=== PATIENT | female | born 1935 | race Caucasian/White ===

== ENCOUNTER 2016-08-30 11:38 | Outpatient (CLI) | payer MEDICARE, OTHER ==
[~2016-08-30] VITALS: Ht 160 cm; Wt 61.4 kg
--- NOTE | ~2016-08-30 | HEMODYNAMI ---
PATIENT:SIMON THOMPSON MEDICAL RECORD: [id number] : 34 LOCATION:[facility]SEK[facility] ADMISSION DATE: 08/30/16 Generatedon:08/30/201616:57 Patient name: SIMON THOMPSON Patient #: [id number] SS N: : 1935 Date of study: 08/30/2016 Page: Of Hemodynamic Procedure Report Patient Data Patient Demographics Procedure consent was obtained First Name: SIMON Gender: Female Last Name: JAY : 1935 [facility] Initial: MCKAYLA Age: 80 year(s) Patient #: [id number] Race: Unknown Additional ID: [id number] Contact details [address]: [address] [place] [address] State: [place] City: [place] Zip code: [address] Past Medical History Allergies: No known allergies Admission Admission Data Admission Date: 08/30/2016 Admission Time: 11:38 Height (in.): 65 BSA: 1.69 (m2) Height (cm.): 165.1 BMI: 23.13 (kg/m2) Weight (lbs.): 139 Weight (kg.): 63.05 Lab Results Lab Result Date: 08/30/2016 Lab Result Time: 0:00 CBC Name Units Result Min Max Hemoglobin g/dl 15 --(-*--)-- 13.5 17.5 Procedure Procedure Types Cath Procedure Diagnostic Procedure PPM/ICD PPM Dual Implant Miscellaneous Procedures Moderate Sedation up to 15 minutes Procedure Description Procedure Date Procedure Date: 08/30/2016 Procedure Start Time: 15:53 Procedure End Time: 16:56 Procedure Staff Name Function Deep Mantilla MD Performing Physician Reinaldo Henson MD Assisting physician Manolo Martínez RT Monitor Victor Manuel Jeffries RT Construction Analyst Ana Paula Gibson RN Nurse Kim Hickman RT Scrub Procedure Data Cath Procedure Fluoroscopy Diagnostic fluoroscopy Total fluoroscopy Time: time: 16.8 min 16.8 min Diagnostic fluoroscopy Total fluoroscopy dose: dose: 266.9 mGy 266.9 mGy Procedure Complications No complications Procedure Medications Medication Administration Route Dosage Ancef (1Gm/50ml NS) I.V.P.B 1 g Ancef Irrigation Topical 1 g (1gm/500ml NS) Lidocaine 1% with added to field 20 ml Epi Bupivacaine 0.5% S.Q. 10 ml 0.9% NaCl I.V. 25 ml/hr Versed I.V. 1 mg Fentanyl I.V. 50 mcg Versed I.V. 1 mg Fentanyl I.V. 50 mcg Fentanyl I.V. 25 mcg Oxygen NC 2 l/min Fentanyl I.V. 25 mcg Fentanyl I.V. 50 mcg Hemodynamics Rest BSA: 1.69 (m2) HGB: 15 (g/dl) O2 Consumption: Estimated: 159.91 (ml/min) O2 Cons umption indexed: Estimated:94.62 (ml/min/m) Heart Rate: 83 (bpm) Snapshots Pre Cath Intra NCS Post Cath Vital Signs Time Heart Resp SPO2 NIBP (mmHg) Rhythm Pain Sedation Rate (ipm) (%) Status Level (bpm) 15:41:28 81 15 94 157/75(112) NSR 0 (11) 10(A) , No pain 15:45:50 80 16 95 129/67(103) NSR 0 (11) 10(A) , No pain 15:50:04 78 15 98 133/73(108) NSR 0 (11) 10(A) , No pain 15:54:20 67 18 97 128/73(104) NSR 0 (11) 10(A) , No pain 15:58:34 83 16 95 132/65(103) NSR 0 (11) 10(A) , No pain 16:03:45 76 17 95 132/61(93) NSR 0 (11) 10(A) , No pain 16:07:57 71 22 95 113/57(81) NSR 0 (11) 10(A) , No pain 16:12:09 83 16 95 122/62(87) NSR 0 (11) 10(A) , No pain 16:16:25 70 17 95 125/57(100) NSR 0 (11) 9(A) , No pain 16:20:43 71 19 94 127/58(93) NSR 0 (11) 10(A) , No pain 16:24:59 67 17 94 141/63(100) NSR 0 (11) 10(A) , No pain 16:29:11 68 16 94 123/71(104) NSR 0 (11) 10(A) , No pain 16:33:25 74 18 94 141/68(92) NSR 0 (11) 10(A) , No pain 16:37:45 65 15 94 126/66(122) NSR 0 (11) 10(A) , No pain 16:41:57 89 16 95 139/73(113) NSR 0 (11) 10(A) , No pain 16:46:17 63 17 97 132/63(87) NSR 0 (11) 10(A) , No pain 16:50:27 63 18 97 137/70(117) NSR 0 (11) 10(A) , No pain 16:54:41 90 7 97 134/65(109) NSR 0 (11) 10(A) , No pain Medications Time Medication Route Dose Verified Delivered Reason Notes Effectiv eness by by 15:41:25 Ancef I.V.P.B 1 g Deep Goss used for (1Gm/50ml Annalee Gibson form grader operator NS) 15:41:35 Ancef Topical 1 g Deep Reinaldo used for Irrigation Bascom Breving procedure (1gm/500ml MD WOODS NS) 15:53:26 Lidocaine added 20 ml Deep Najera for local 1% with Epi to Bascom Breving anesthetic field MD WOODS 15:53:39 Bupivacaine S.Q. 10 ml Deep Najera for local 0.5% Annalee Breving anesthetic MD WOODS 15:53:49 0.9% NaCl I.V. 25 Deep Goss Per ml/hr BascomTimbo Gibson RN physician 15:53:56 Versed I.V. 1 mg Deep Muhammadie for Bascom Gibson RN sedation 15:54:03 Fentanyl I.V. 50 Deep Sabinaie for mcg AnnaleeTimbo Gibson RN sedation 15:59:16 Versed I.V. 1 mg Deep Muhammadie for Bascom Gibson RN sedation 15:59:21 Fentanyl I.V. 50 Deep Muhammadie for mcg BascomTimbo Gibson RN sedation 16:02:56 Oxygen NC 2 Deep Sabinaie used for l/min AnnaleeTimbo Gibson form grader operator 16:17:20 Fentanyl I.V. 25 Deep Goss for [facility] St. Timbo Gibson RN sedation 16:21:14 Fentanyl I.V. 25 Deep Goss for [facility] St. Timbo Gibson RN sedation 16:33:54 Fentanyl I.V. 50 Deep Goss for [facility] St. Timbo Gibson RN sedation Procedure Log Time Note 15:11:47 Patient Height : 165.1 cm 15:11:53 Patient Weight : 63.05 kg 15:12:54 Diagnostic Cath status Elective 15:12:58 Manolo Martínez RT(R) sent for patient. Start room use. 15:40:14 Vital chart was started 15:41:25 Ancef (1Gm/50ml NS) 1 g I.V.P.B was administered by Ana Paula Gibson RN; used for procedure; 15:41:35 Ancef Irrigation (1gm/500ml NS) 1 g Topical was administered by Reinaldo Henson MD; used for procedure; 15:44:45 Time tracking: Regular hours 15:46:13 Plan of Care:Hemodynamics will remain stable., Cardiac rhythm will remain stable., Comfort level will be maintained., Respiratory function will remain adequate., Patient/ family verbilizes understanding of procedure., Procedure tolerated without complication., Recovers from procedure without complications.. 15:46:29 Patient received from Pre/Post Procedure Room to [facility] 3 Alert and oriented. Tansferred to table in Supine position. 15:46:30 Warm blankets applied, and allan hugger turned on for patient comfort. 15:46:30 Correct patient and procedure confirmed by team. 15:46:32 Signed procedure consent form obtained from patient. 15:46:32 ECG and BP/O2 sat monitors applied to patient. 15:46:33 Baseline sample Acquired. 15:46:35 Rhythm: sinus rhythm 15:46:36 Full Disclosure recording started 15:46:45 H&P Date Dictated: 08/24/2016 Within 30 days and on chart., H&P Addendum completed by physician on day of procedure. (MUST COMPLETE FOR ALL OUTPATIENTS). 15:46:47 Pre-procedure instructions explained to patient. 15:46:47 Pre-op teaching completed and patient verbalized understanding. 15:46:48 Family in waiting room. 15:46:49 Patient NPO since Midnight. 15:46:56 Patient allergic to No known allergies 15:46:58 Is the patient allergic to Iodine/contrast media? No. 15:47:00 Is patient on blood thinner?No 15:47:06 Patient diabetic? No. 15:47:08 ----Pre-sedation anethsthesia assessment.---- 15:47:10 Previous problem with sedation/anesthesia? No ? 15:47:11 Snore? Yes 15:47:12 Sleep apnea? No 15:47:14 Deviated septum? No 15:47:15 Opens mouth fully? Yes 15:47:16 Sticks out tongue? Yes 15:47:18 Airway obstruction? No ? 15:47:25 Dentures? No ? 15:47:29 Patient pain scale 0/10 ?. 15:47:34 IV patent on arrival in left hand with 0.9% NaCl at 10ml/hr. 15:51:56 Lab Result : Hemoglobin 15 g/dl 15:52:52 Lab results completed and on chart. 15:52:58 Left chest area was prepped with chlora-prep and draped in sterile fashion 15:52:59 Alarms reviewed by R. N. 15:52:59 Sharps counted by scrub and verified by R.N. 15:53:08 --------ALL STOP TIME OUT------ 15:53:09 Final Timeout: patient, procedure, and site verified with staff and physician. All members of the team are in agreement. 15:53:12 Left chest site verified by team. 15:53:16 Physical assessment completed. ASA score P 2 - A patient with mild systemic disease as per Deep Mantilla MD. 15:53:19 Sedation plan: IV Moderate Sedation Versed, Fentanyl 15:53:25 Procedure started. 15:53:26 Lidocaine 1% with Epi 20 ml added to field was administered by Reinaldo Henson MD; for local anesthetic; 15:53:37 [employer]tronic security systems sales representative WILLEM HARMANOE present for procedure. 15:53:39 Bupivacaine 0.5% 10 ml S.Q. was administered by Reinaldo Henson MD; for local anesthetic; 15:53:49 0.9% NaCl 25 ml/hr I.V. was administered by Ana Paula Gibson RN; Per physician; 15:53:56 Versed 1 mg I.V. was administered by Ana Paula Gibson RN; for sedation; 15:54:03 Fentanyl 50 mcg I.V. was administered by Ana Paula Gibson RN; for sedation; 15:54:06 Pre sharps counted by scrub and verified by RN: Sutures: 14 Sponges: 5 Stick needles: 4 Skin needles: 0 Blade: 1 Cautery: 1 15:54:09 Grounding pad site Left thigh. 15:54:12 Grounding pad site free from injury. 15:54:18 Lidocaine 1% w/epi and Bupivacaine 0.5% to left subclavicular area by Reinaldo Henson MD. 15:54:21 Incision made to left subclavicular area. 15:54:47 Medtronic 4574-45 PPM Lead opened to sterile field. 15:54:48 Medtronic 4074-52 PPM Lead opened to sterile field. 15:54:48 Medtronic Adapta PPM Dual Generator opened to sterile field. 15:56:30 Generator pocket made/opened. 15:59:16 Versed 1 mg I.V. was administered by Ana Paula Gibson RN; for sedation; 15:59:21 Fentanyl 50 mcg I.V. was administered by Ana Paula Gibson RN; for sedation; 16:00:30 Left subclavian vein accessed with 9Fr Safe Sheath. 16:00:35 Ventricular lead inserted and advanced. 16:00:37 Ventricular lead positioned. 16:00:41 Ventricular lead tested. 16:01:00 Atrial lead inserted and advanced. 16:01:02 Atrial lead positioned. 16:01:06 Atrial lead tested. 16:02:56 Oxygen 2 l/min NC was administered by Ana Paula Gibson RN; used for procedure; 16:17:20 Fentanyl 25 mcg I.V. was administered by Ana Paula Gibson RN; for sedation; 16:21:14 Fentanyl 25 mcg I.V. was administered by Ana Paula Gibson RN; for sedation; 16:33:54 Fentanyl 50 mcg I.V. was administered by Ana Paula Gibson RN; for sedation; 16:38:44 Peel-a-way sheath was split and removed. 16:39:16 Ventricular lead attachment was completed with 2-0 ticron. 16:39:19 Atrial lead attachment was completed with 2-0 ticron. 16:39:23 Generator was sutured in place with 2-0 ticron. 16:39:40 Device pocket was irrigated with Ancef. 16:41:03 Parameters-- Generator: Mode: DUEL. Lower Rate: 60bpm. Upper Rate: 130bpm. 16:41:40 Parameters--Ventricular P/R Wave: 4.5mV. Current: 25mA; Threshold: 1.3V; Impedence: 1465OHMS. 16:42:05 Parameters--Atrial P/R Wave: 3.8mV. Current: 0.1mA; Threshold: 0.4V; Impedence: 810OHMS. 16:46:15 Subcutaneous closure was completed with 3-0 vicryl. 16:46:22 Skin closure was completed with 3-0 vicryl plus. 16:53:31 Lt Chest incision was dressed with Mepilex dressing. 16:53:48 Procedure ended.(Physican Out) 16:54:29 3.0 Vicryl Multipack [id number] opened to sterile field. 16:54:30 3.0 Vicryl Single Pack [id number] opened to sterile field. 16:54:30 2.0 Ticron Multipack opened to sterile field. 16:54:37 Fluoroscopy time 16.80 minutes. 16:54:43 Flurop Dose total: 266.9 16:54:43 Fluoroscopy dose: 266.9 mGy 16:54:44 Sharps counted by scrub and verified by R.N. 16:54:45 Insertion/operative site no bleeding no hematoma. 16:54:49 Post-op/insertion site Left Chest area dressed using a Mepilex dressing. 16:54:57 Post Chest area:stable 16:55:06 Post Procedure Pulses reassessed and unchanged 16:55:10 Post procedure rhythm: sinus rhythm 16:55:11 Post procedure instruction explained to patient.Patient verbalizes understanding. 16:55:25 Use device set Pacemaker Set 16:55:27 Mepilex Dressing opened to sterile field. 16:55:30 Immobilizer Sling Medium opened to sterile field. 16:55:43 Procedure and supply charges have been captured, reviewed, submitted and are correct. 16:55:58 Procedure Complication : No complications 16:56:01 Vital chart was stopped 16:56:01 See physician's report for complete and final results. 16:56:03 Report given to PCU. 16:56:06 Patient transfered to PCU with Bed. 16:56:08 Procedure ended. 16:56:08 Full Disclosure recording stopped 16:56:12 End room use (Document Last) Device Usage Item Name Manufacture Quantity Catalog Hospital Part Current Minimal Lot# / Number Charge Number Stock Stock Serial# Code Medtronic Medtronic 1 4574-45 220927 110035 5 4574-45 PPM Lead Medtronic Medtronic 1 4074-52 308449 499085 5 4074-52 PPM Lead Medtronic Medtronic 1 [id number] [id number] 5 [id number] Adapta PPM 11-19-2017 Dual Generator 3.0 Vicryl Ethicon 1 [id number] 111248 031491 [id number] 5 Multipack [id number] 3.0 Vicryl Ethicon 1 [id number] 473626 110301 172892 5 Single Pack [id number] 2.0 Ticron Ethicon 1 [id number] 385933 50850 290705 5 Multipack Mepilex Cardinal 1 920844 052526 950635 844776 5 [facility] Immobilizer Cardinal 1 [id number] 435875 689836 633742 5 [facility] Medium Signature Audit [place] Stage Time Signature Unsigned Intra-Procedure 08/30/2016 Manolo Martínez 4:57:31 PM RT(R) Signatures Monitor : Manolo Martínez RT Signature : Date : Time : [address] [place] [address]
--- NOTE | ~2016-08-30 | OP ---
PATIENT NAME: SIMON THOMPSON MEDICAL RECORD: [id number] :34 LOCATION:D.M2 D.2123 ADMISSION DATE: SURGEON: KELLIE ROWELL MD OPERATION DATE: 08/30/16 DATE OF OPERATION: 08/30/2016 PREOPERATIVE DIAGNOSIS: Sick sinus syndrome with pauses. POSTOPERATIVE DIAGNOSIS: Sick sinus syndrome with pauses. PROCEDURES: Creation of left infraclavicular pacemaker pocket. Vascular access into the central venous system. Closure of pacemaker pocket. INSPECTION ENGINEER: Dr. Deep Rose. SURGEON: Dr. Kellie Rowell. ANESTHESIA: Local with IV sedation. OPERATIVE COURSE: The patient was conveyed to the cardiac catheterization laboratory on 08/30/2016. IV sedation was induced by the nursing staff under my direction. The left chest was sterilely prepped and draped. Local anesthetic was used to infiltrate the skin and subcutaneous tissues inferior to the left clavicle. Transverse incision was accomplished. I bluntly dissected on top of the pectoralis fascia in a caudad direction. Through the pacemaker pocket, I accessed the left subclavian vein in an antegrade fashion. A 9-Latvian dilator sheath was advanced. The dilator was removed. Through the sheath, the ventricular lead was advanced. Dr. Mantilla positioned the lead. Appropriate thresholds were obtained. I sutured the lead down to the underlying pectoralis fascia with 2-0 TiCron times 2. Attention was then turned to placement of the atrial lead. Over the secondary wire, a 7-Latvian dilator sheath was advanced. The dilator and wire were removed. Through the sheath, an atrial lead was advanced. The Peel-Away 7-Latvian sheath was then removed. The atrial lead was positioned in the atrium. Appropriate thresholds were obtained. I then secured the knee down to the underlying pectoralis fascia with 2-0 TiCron times 2. A medial suture was placed around both of these to prevent back bleeding. I confirmed with pacemaker labor union business representative the ventricular lead serial number. It was placed in the ventricular dock of the pacemaker and tightened down with the wrench. I tried to dislodge the ventricular lead and was unable to do so. I then confirmed the serial number on the atrial lead. It was placed in the atrial dock of the pacemaker. I then tightened down with the wrench. I tried to dislodge the atrial lead and was unable to do so. I then positioned the pacemaker in the pacemaker pocket with care paid to place the leads posterior to the pacemaker. I sutured the pacemaker down to the underlying pectoralis fascia with a single 2-0 TiCron. I irrigated the pacemaker pocket with normal saline. The subdermis was approximated with OPERATIVE REPORT [id number] SIMON THOMPSON interrupted 3-0 Vicryls. The skin was approximated with a running intracuticular 4-0 Vicryl. A sterile dressing was applied. The patient was then conveyed back to the post-cardiac catheterization recovery area. TRANSINT:[id number] Voice Confirmation ID: [id number] DOCUMENT ID: [id number] KELLIE ROWELL MD CC: DEEP ROSE MD [id number] DICTATION DATE: 08/30/161657 SUPERVISOR CUSTOMER COMPLAINT SERVICE: 08/30/162201 [facility] [address] [place] [address]
[2016-08-30] MEDS ORDERED: COZAAR50 MG PO (12:16)
[2016-08-30] MEDS ORDERED: ZYRTEC10 MG PO (12:17)
[2016-08-30] MEDS ORDERED: PROTONIX20 MG PO (12:17)
[2016-08-30] MEDS ORDERED: NORVASC5 MG PO (12:17)
[2016-08-30] MEDS ORDERED: BAYER CHEWABLE81 MG PO (12:18)
[2016-08-30] MEDS ORDERED: ZOCOR10 MG PO (12:18)
[2016-08-30] MEDS ORDERED: VITAMIN D31000 UNIT PO (12:18)
[2016-08-30] MEDS ORDERED: MILK THISTLE140 MG PO (12:19)
[2016-08-30] MEDS ORDERED: CENTRUM SILVER1 EAC3 PO (12:19)
[2016-08-30] MEDS ORDERED: OMEGA-3100 MG PO (12:19)
[2016-08-30] MEDS ORDERED: OSTEO BI-FLEX1 EAC1 PO (12:20)
[2016-08-30] MEDS ORDERED: VITAMIN B-121000 MCG PO (12:20)
[2016-08-30] MEDS ORDERED: CITRACAL + D E1 EACH PO (12:20)
[2016-08-30] MEDS ORDERED: ALEVE220 MG PO (12:21)
[2016-08-30] MEDS ORDERED: CO Q-10200 MG PO (12:21)
[2016-08-30 12:22] VITALS: BP 161/76; BMI 23.9
[2016-08-30 12:27] LABS: HEMATOCRIT 44.1 % (36.0-48.0); MCH 31.7 pg (26.0-34.0); MCV 93.2 fL (80.0-100.0); MEAN PLATELET VOLUME 10.3 fL (7.4-10.4); RBC 4.73 10x6/uL (4.00-5.40); RDW 12.6 % (11.5-14.5); WBC 7.7 10x3/uL (4.8-10.8)
[2016-08-30 12:41] LABS: CALC OSMOLALITY 284 mosm/kg (275-300); CALCIUM 10.1 mg/dL (8.5-10.1); CARBON DIOXIDE 25.7 mmol/L (21.0-32.0); CHLORIDE - SERUM 104 mmol/L (98-107); CREATININE - SERUM 0.7 mg/dL (0.6-1.3); GLUCOSE 106 mg/dL (74-106); POTASSIUM - SERUM 4.5 mmol/L (3.5-5.1); SODIUM 141 mmol/L (136-145); UREA NITROGEN 24 mg/dL (7-18); eGFR NON AFRICAN AMERICAN 85 mL/min (90-120)
[2016-08-30 13:15] LABS: APTT 27.2 SECONDS (22.8-39.4); INR 1.06 (0.85-1.17); PROTIME 13.6 SECONDS (11.6-15.0)
--- NOTE | 2016-08-30 17:30 | NUR ---
RECIEVED FROM TEACHER EMOTIONALLY IMPAIRED. V/S STABLE TELEMERTY SHOWS SR WITH A RATE OF 67 O 2 AT 4 L/M PER NC. LEFT ARM SLING ON. DRSG TO LEFT UPPER CHEST DRY AND INTACT. SR UP WITH CALL LIGHT IN REACH. WILL MONITPR
--- NOTE | 2016-08-30 18:55 | NUR ---
LYING QUIETLY. FAMILY AT BEDSIDE. PACER SITE CLEAN AND DRY. WELL MOINTOR V/S STABLE
--- NOTE | 2016-08-30 20:00 | NUR ---
INITIAL ROUNDS, PT RESTING IN BED WITH LEFT ARM IN SLING. LEFT CHEST WALL WITH DRESSING OVER NEW PACEMAKER SITE. PT C/O GENERALIZED DISCOMFORT TO INCISION SITE. WILL FOLLOW UP WITH MD FOR PAIN MEDICATION.
[2016-08-30 20:01] VITALS: BP 142/72
--- NOTE | 2016-08-30 21:00 | NUR ---
PHONE CALL TO DR SANDOVAL AND NEW ORDERS RECIEVED FOR JONANCY FOR PAIN.
--- NOTE | 2016-08-30 21:30 | NUR ---
NORCO 10/325 ONE TABLET GIVEN FOR POST OP INCISIONAL PAIN. ASSISTED PT UP AN INTO BATHROOM TO VOID. BACK TO BED. LEFT ARM SLING IN PLACE. CALL LIGHT IN REACH. MONITOR AND CPOC.
[2016-08-31 00:17] VITALS: BP 133/64
[2016-08-31 02:47] VITALS: BP 133/64; Ht 160 cm; Wt 61.4 kg
--- NOTE | 2016-08-31 03:24 | NUR ---
RESTING IN BED. RESPS EVEN/NONLABORED. LEFT ARM IN SLING. DRESSING TO LEFT CHEST WALL C/D/I. MONITOR AND CPOC.
--- NOTE | 2016-08-31 04:26 | NUR ---
AWAKE, ASSISTED UP TO BATHROOM TO VOID. SOME PAIN/DISCOMFORT TO INCISIONAL AREA. MEDICATED WITH NORCO ONE TAB. MONITOR AND CPOC
[2016-08-31 04:46] VITALS: BP 155/70
[2016-08-31 08:19] VITALS: BP 171/69
--- NOTE | 2016-08-31 11:47 | NUR ---
ALERT AND ORIENTED X4. SITTING UP IN BED. ACTIVELY VOMITING. BP-186/90 RECHECK MANUALLY. BP-172/82. CALL TO NOTIFY OF STATUS CHANGE. SINUS ROBERT 54bpm ON TELEMETRY. CONTINUE PLAN OF CARE. BED LOCKED AND LOW. CALL LIGHT IN REACH.
[2016-08-31 12:05] VITALS: BP 172/82
--- NOTE | 2016-08-31 13:35 | NUR ---
ALERT AND ORIENTED X4. FAMILY AT BEDSIDE. SITTING UP IN CHAIR. SERGEI ORDERED X1 DOSE BEFORE DISCHARGE. DISCHARGE INSTRUCTIONS GIVEN VERBALLY AND WRITTEN. DISCHARGE PAPERS SIGNED ON CHART. DC LT HAND IV TIP INTACT. ENCOURAGE TO KEEP ARM IN SLING FOR TWO WEEKS. ESCORT TO RIDE VIA WHEELCHAIR. REMAINS FREE FROM INJURY. LT CHEST INCISION DRESSING CLEAN DRY INTACT.
--- NOTE | 2016-09-01 14:06 | OP ---
PATIENT NAME: SIMON THOMPSON MEDICAL RECORD: [id number] :34 LOCATION:D.CAT ADMISSION DATE: SURGEON: SANG ROSE MD PROCEDURE: Lead portion of permanent pacemaker placement. INDICATION: Sick sinus syndrome with pauses greater than 6 seconds. SURGEON: Reinaldo Henson F.A.C.S. PROCEDURE IN DETAIL: After the left subclavian was cannulated via modified Seldinger technique via Dr. Henson, first under fluoroscopic guidance I placed the right ventricular lead into the right ventricular apex without difficulty. After adequate R waves and thresholds were obtained , then under fluoroscopic guidance, I placed the right atrial lead in the right atrial appendage without difficulty. After adequate thresholds and P waves were obtained, I then attached the leads to the appropriate poles of the generator. The pocket was closed via Dr. Henson. IMPRESSION: Successful lead portion of permanent pacemaker placement. COMPLICATIONS: None. ESTIMATED BLOOD LOSS: Minimal. DISPOSITION: To the floor stable. SANG ROSE MD at 1406 CC: [id number] DICTATION DATE: 08/30/16 1500 PLUG MAKER: DM 08/31/16 0840 DEP CLI 08/31/16 [facility] [address] [place] [address]
== END 2016-08-31 14:07 | disposition home or self-care (01) ==
LOC: D.CATH 11:38 → D.M2 17:01 → D.CATH 08-31 14:07
PROVIDERS: Internal Medicine Interventional Cardiology
DX: I49.5 Sick sinus syndrome (principal); Z01.812 Encounter for preprocedural laboratory examination

== ENCOUNTER → 2016-09-12 14:54 | Outpatient (CLI) | payer MEDICARE, OTHER ==
[2016-08-31 02:47] VITALS: BMI 23.9
[~2016-09-12 14:54] MED LIST: ALEVE220 MG PO; BAYER CHEWABLE81 MG PO; CENTRUM SILVER1 EAC3 PO; CITRACAL + D E1 EACH PO; CO Q-10200 MG PO; COZAAR50 MG PO; MILK THISTLE140 MG PO; NORVASC5 MG PO; OMEGA-3100 MG PO; OSTEO BI-FLEX1 EAC1 PO; PROTONIX20 MG PO; VITAMIN B-121000 MCG PO; VITAMIN D31000 UNIT PO; ZOCOR10 MG PO; ZYRTEC10 MG PO
== END | disposition home or self-care (01) ==
LOC: D.RAD 14:54
DX: I49.5 Sick sinus syndrome (principal)

== ENCOUNTER 2018-08-12 19:11 | Inpatient (IN) | payer MEDICARE, OTHER ==
[~2018-08-12] VITALS: Ht 160 cm; Wt 60.3 kg
--- NOTE | ~2018-08-12 | EC ---
PATIENT:SIMON THOMPSON DATE OF SERVICE: 08/13/18 SEX: F MEDICAL RECORD: [id number] DATE OF : 34 LOCATION:D.[facility] D.230 AGE OF PATIENT: 82 ADMISSION DATE: 08/13/18 REFERRING PHYSICIAN: INTERPRETING PHYSICIAN: SCOTTY LAI MD ECHOCARDIOGRAM REPORT ECHO CHARGES 5 ECHO LIMITED Date: 08/27/18 CLINICAL DIAGNOSIS: HYPOTENSION, SOB, HX OF CAD/STENTS/PACEMAKER ECHOCARDIOGRAPHIC MEASUREMENTS (adult normal given) AC root (d.<3.7cm) cm LV Septum d (<1.2 cm> cm Valve Excursion cm LV Septum (systole) cm Left Atria (s.<4.0cm> 3.5 cm LVPW d(<1.2cm) cm RV (d.<2.3cm) 2.9 cm LVPW (sytole) cm LV diastole(<5.6CM) 4.5 cm MV E-F(>70mm/sec) cm LV systole 2.9 cm LVOT Diameter 1.8 cm MV exc.(>10mm) cm Est.ejection fraction (50-75%) % DOPPLER: LVIT cm/sec A 94.0 cm/sec E 39.0 cm/sec LA cm/sec RVSP 30 mmHg LVOT 95 cm/sec AOP1/2T m/s Asc. Ao 127 cm/sec RVOT cm/sec RA cm/sec PA cm/sec AV Gradient Peak 6.42 mmHg AV Mean 3.64 mmHg AV Area 1.7 cm MV Gradient Peak 4.45 mmHg MV Mean 1.63 mmHg MV Area cm COMMENTS: Budget Counselor: Lorenza LOYA [employer]fg Assoc: 1 Dr. Lai TAPE# PACS Pericardial Effusion N DATE OF SERVICE: FINDINGS: 1. Left ventricular chamber size is within normal limits. Left ventricular systolic function is normal at 55% to 60%. 2. Left atrium, right atrium, right ventricular chamber sizes are within normal limits. 3. Valvular structures have normal structure and motion. 4. Doppler interrogation only reveals mild tricuspid regurgitation, no other valvular insufficiency or stenosis. Pulmonary systolic pressure is normal ECHOCARDIOGRAM REPORT [id number] SIMON THOMPSON estimated at 30 mmHg. 5. No evidence of pericardial effusion or left ventricular thrombus. TRANSINT:[id number] Voice Confirmation ID: [id number] DOCUMENT ID: [id number] SCOTTY LAI MD CC: [id number] DICTATION DATE: 08/27/18918 ROCK DUSTER: 08/27/18931 ADM IN [facility] [address] [facility]
--- NOTE | ~2018-08-12 | OP ---
PATIENT NAME: SIMON THOMPSON MEDICAL RECORD: [id number] :33 LOCATION:D.MS [id number] ADMISSION DATE:08/13/18 SURGEON: REINALDO ROWELL MD DATE OF OPERATION: 08/22/2018 PREOPERATIVE DIAGNOSIS: Perforated viscus with pneumoperitoneum. 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 PROCEDURE: Diagnostic laparoscopy with laparoscopic lavage and placement of drains. SURGEON: Reinaldo Rowell MD STORAGE AND BACKUP ADMINISTRATOR: None. BLOOD LOSS: 50 cc of new blood loss. ANESTHESIA: General. COMPLICATIONS: None. DRAINS: Two 19-Croatian closed suction drainage system. The patient has had a pneumoperitoneum. In the past day, I think that we determined that the bilious ascites and the exudate that was seen over the liver at the time of the patient's laparoscopic cholecystectomy was likely due to a perforated viscus that had already existed. The patient's gallbladder was not acutely inflamed so she essentially had 2 processes going on. I have elected for laparoscopic washout with placement of drains rather than an interventional radiology procedure to drain a pelvic fluid collection. OPERATIVE COURSE: The patient was conveyed to the operating room electively on 08/22/2018. General anesthesia was induced by the anesthesia staff. The abdomen was sterilely prepped and draped. The left upper quadrant trocar site was opened. A 5-mm trocar was inserted. CO2 insufflation was begun. Once a sufficient pneumoperitoneum had been achieved, an 8-mm trocar was inserted in the left lower quadrant. Utilizing my laparoscopic suction cannula, I took down some filmy adhesions around the entire abdomen. I irrigated and aspirated. I moved some of the omentum from down the pelvis and I identified a fluid collection here as well as exudate and some bleeding. It appeared that this was the area of greatest inflammation and I think the patient likely had a perforated sigmoid diverticulum. We are going to try this therapy first and if this does not work then I will proceed with a diverting colostomy sometime in the future. Another 8-mm trocar was inserted this time through the prior trocar site in the right upper quadrant. I irrigated further in all quadrants and aspirated. A 19-Croatian round fully fluted drain was placed through each of the 8-mm trocars. The one on the left side was placed down the pelvis. The one on the right side was placed up in the right upper quadrant. All the trocars were removed and the abdomen desufflated. OPERATIVE REPORT [id number] SIMON THOMPSON The drains were sutured to the skin with 4-0 nylons. The trocar site in the left upper quadrant was closed with a single intracuticular 3-0 Vicryl. Benzoin and Steri-Strips were applied. The patient was then extubated and conveyed to the post-anesthesia care unit. I went out and had some laparoscopic photos, which I showed the patient's family and told them of my operative findings. TRANSINT:[id number] Voice Confirmation ID: [id number] DOCUMENT ID: [id number] REINALDO ROWELL MD CC: JANET BONILLA MD [id number] DICTATION DATE: 08/22/181424 RN NEW GRAD: 08/22/18 1633 ADM IN [facility] [address] [id number]
--- NOTE | ~2018-08-12 | HEMODYNAMI ---
PATIENT:SIMON THOMPSON MEDICAL RECORD: [id number] : 33 LOCATION:[facility] D.2305 ADMISSION DATE: 08/13/18 Generatedon:08/27/201813:51 Patient name: SIMON THOMPSON Patient #: [id number] SS N: : 1935 Date of study: 08/27/2018 Page: Of Hemodynamic Procedure Report Patient Data Patient Demographics Procedure consent was obtained First Name: SIMON Gender: Female Last Name: JAY : 1935 [facility] Initial: MCKAYLA Age: 82 year(s) Patient #: [id number] Race: Unknown Additional ID: [id number] Contact details [address]: [address] [place] [address] State: [place] City: [place] Zip code: [address] Past Medical History Allergies: No known allergies Admission Admission Data Admission Date: 08/13/2018 Admission Time: 18:16 [facility] Procedure Types Cath Procedure Peripheral Cath Diagnostic Procedure Venography IVC/SVC Inferior Venacava Filter Procedure Description Procedure Date Procedure Date: 08/27/2018 Procedure Start Time: 13:22 Procedure Staff Name Function Faisal Gong MD Performing Physician Soni Boucher RT Monitor Itz Orozco RT Scrub Bianka Solorio RN Nurse Procedure Data Cath Procedure Fluoroscopy Diagnostic fluoroscopy Total fluoroscopy Time: 1.2 time: 1.2 min min Diagnostic fluoroscopy Total fluoroscopy dose: 60 dose: 60 mGy mGy Contrast Material Contrast Material Type Amount (ml) Isovue 300 20 Hemodynamics Rest Heart Rate: 106 (bpm) Snapshots Pre Cath Intra NCS Post Cath Vital Signs Time Heart Resp SPO2 etCO2 NIBP Rhythm Pain Sedation Rate (ipm) (%) (mmHg) (mmHg) Status Level (bpm) 13:05:47 104 45 91 0 70/43(64) NSR 0 (11) 10(A) , No pain 13:10:40 108 48 91 0 85/44(63) NSR 0 (11) 10(A) , No pain 13:14:39 111 53 92 0 87/49(61) NSR 0 (11) 10(A) , No pain 13:18:39 110 52 92 0 91/48(58) NSR 0 (11) 10(A) , No pain 13:22:43 108 46 0 89/41(63) NSR 0 (11) 10(A) , No pain 13:26:47 107 39 0 88/41(72) NSR 0 (11) 10(A) , No pain 13:30:48 108 42 92 0 86/43(61) NSR 0 (11) 10(A) , No pain 13:34:50 107 45 93 0 76/41(55) NSR 0 (11) 10(A) , No pain 13:38:46 110 31 91 0 77/50(60) NSR 0 (11) 10(A) , No pain 13:40:24 108 47 92 0 85/45(62) NSR 0 (11) 10(A) , No pain 13:42:49 108 47 93 0 80/50(62) NSR 0 (11) 10(A) , No pain 13:44:38 109 52 90 0 95/63(76) NSR 0 (11) 10(A) , No pain 13:48:35 110 50 0 108/64(81) NSR 0 (11) 10(A) , No pain Procedure Log Time Note 12:36:04 Use device set IR Diagnostic 12:36:06 Tegaderm 4 x 4 (1626W) opened to sterile field. 12:36:07 Sterile Angiographic Pack opened to sterile field. 12:36:08 Bag Decanter () opened to sterile field. 12:36:09 ACIST Manifold (62886) opened to sterile field. 12:36:10 ACIST Hand Control (65807) opened to sterile field. 12:36:11 ACIST Syringe (51579) opened to sterile field. 12:36:12 BENTSON 145cm wire (A11039) opened to sterile field. 12:36:13 Micropuncture VSI 4FR kit opened to sterile field. 12:36:28 FILTER Beata Vena Cava (WH432Q) opened to sterile field. 12:36:36 - 12:44:52 Time tracking: Regular hours (M-F 7:00 - 5:00) 12:45:15 Plan of Care:Hemodynamics will remain stable., Cardiac rhythm will remain stable., Comfort level will be maintained., Respiratory function will remain adequate., Patient/ family verbilizes understanding of procedure., Procedure tolerated without complication., Recovers from procedure without complications.. 12:45:22 Patient received from ICU to IR Alert and oriented. Tansferred to table in Supine position. 12:45:41 Signed procedure consent form obtained from patient. 12:45:45 Correct patient and procedure confirmed by team. 12:45:54 H&P Date Dictated: 08/27/2018 Within 30 days and on chart.. 12:45:56 Pre-procedure instructions explained to patient. 12:45:56 Pre-op teaching completed and patient verbalized understanding. 12:45:59 Family unavailable. 12:46:02 Patient NPO since Midnight. 12:46:14 Patient allergic to No known allergies 12:47:32 Patient diabetic? No. 12:47:38 - 12:47:40 ----Pre-sedation anethsthesia assessment.---- 12:47:44 Previous problem with sedation/anesthesia? No ? 12:47:48 Snore? Yes 12:47:54 Sleep apnea? No 13:04:25 - 13:04:29 ECG and BP/O2 sat monitors applied to patient. 13::30 Vital chart was started 13::32 Baseline sample Acquired. ::35 Full Disclosure recording started 13::37 - 13:05:03 IV patent on arrival in left forearm with D5/.45%NaCl at KVO. 13:05:09 Right groin area was prepped with chlora-prep and draped in sterile fashion 13:05:15 - :29 Fire Safety Assessment: A--An alcohol-based skin anteseptic being used preoperatively., C--Open oxygen or nitrous oxide is being used. 13:05:40 - 13::53 Physician arrived 13::54 --------ALL STOP TIME OUT------ :54 Final Timeout: patient, procedure, and site verified with staff and physician. All members of the team are in agreement. 13::18 Procedure started. 13::42 Local anesthetic to right femoral vein with Lidocaine 1% by Faisal Gong MD.INITIAL ACCESS ONLY 13:35:28 Contrast amount:Isovue 300 20ml. 13:38:12 Procedure ended.(Physican Out) :38:38 Flurop Dose total: 60 13:38:38 Fluoroscopy dose: 60 mGy 13:38:40 Procedure and supply charges have been captured, reviewed, submitted an d are correct. 13:39:54 Report given to ICU. 13:42:34 Fluoroscopy time 01.20 minutes. 13:43:36 Patient transfered to ICU with Bed. 13:51:35 Vital chart was stopped Device Usage Item Name Manufacture Quantity Catalog Hospital Part Current Minima l Lot# / Number Charge Number Stock Stock Serial# Code Tegaderm 4 x 3M 1 [id number] 5 4 (1626W) Sterile Cardinal 1 [id number] 725321 782320 5 Angiographic Health Pack Bag Decanter Microtek 1 2001S 024357 65647 552675 5 (2001S) Medical Inc. ACIST Acist 1 10036 033109 086732 500886 5 Manifold Medical (85264) Systems Inc ACIST Hand Acist 1 69649 978806 547508 534802 5 Control Medical (28051) Systems Inc ACIST Syringe Acist 1 08926 795329 316728 282824 20 (71445) Medical Systems Inc BENTSON 145cm Cook Medical 1 [id number] 794572 563029 5 wire (S77836) Micropuncture VSI VASCULAR 1 7266V 093890 520930 5 VSI 4FR kit SOLUTIONS FILTER Carter Bard 1 [id number] 702735 946584 425348 5 Vena Cava (CD606S) Signature Audit [place] Stage Time Signature Unsigned Intra-Procedure 08/27/2018 Soni Boucher 1:51:31 PM RT(R) Signatures Monitor : Soni Boucher RT Signature : Date : Time : [facility] [address] [place] [address]
[2018-08-12 19:38] LABS: BASOPHILS 0.2 % (0-2); EOSINOPHILS 0.2 % (0-7); HEMATOCRIT 47.7 % (36.0-48.0); HEMOGLOBIN 16.5 g/dL (12-16); IMMATURE GRANULOCYTES 0.2 % (0-5); MCH 31.4 pg (26.0-34.0); MCHC 34.6 g/dL (31.0-37.0); MCV 90.7 fL (80.0-100.0); MEAN PLATELET VOLUME 9.8 fL (7.4-10.4); MONOCYTES 9.3 % (2-11); NEUTROPHILS 77.1 % (40-80); PLATELET COUNT 146 10x3/uL (130-400); RBC 5.26 10x6/uL (4.00-5.40); RDW 13.7 % (11.5-14.5); WBC 5.1 10x3/uL (4.8-10.8)
[2018-08-12 19:59] VITALS: BP 109/52
[2018-08-12 20:11] LABS: ALBUMIN 3.8 g/dL (3.4-5.0); ALKALINE PHOSPHATASE 62 U/L (46-116); ALT (SGPT) 53 U/L (10-68); BILIRUBIN - TOTAL 1.22 mg/dL (0.2-1.3); CALC OSMOLALITY 287 mosm/kg (275-300); CALCIUM 9.6 mg/dL (8.5-10.1); CHLORIDE - SERUM 101 mmol/L (98-107); CREATININE - SERUM 1.2 mg/dL (0.6-1.3); POTASSIUM - SERUM 4.2 mmol/L (3.5-5.1); PROTEIN - SERUM 7.2 g/dL (6.4-8.2); SODIUM 140 mmol/L (136-145); UREA NITROGEN 25 mg/dL (7-18); eGFR NON AFRICAN AMERICAN 45 mL/min (90-120)
[2018-08-12 20:15] LABS: AMYLASE - SERUM 71 U/L (25-115); GLUCOSE 181 mg/dL (74-106); LIPASE 114 U/L (73-393); TROPONIN-I < 0.017 ng/mL (0.000-0.060)
[2018-08-12 20:41] LABS: APPEARANCE CLEAR (CLEAR); BILIRUBIN NEGATIVE (NEGATIVE); COLOR DK YELLOW (YELLOW); GLUCOSE NEGATIVE (NEGATIVE); KETONE SMALL mg/dL (NEGATIVE); NITRITE NEGATIVE (NEGATIVE); PROTEIN 1+ mg/dL (NEGATIVE); SPECIFIC GRAVITY 1.025 (1.005-1.020); UROBILINOGEN NORMAL (NORMAL)
[2018-08-12 20:42] LABS: BACTERIA FEW /hpf (NONE SEEN); EPITHELIAL CELLS 0-5 /hpf (0-5); MUCUS >1+ /lpf (NONE SEEN); RED CELLS - URINE 0-5 /hpf (0-5); WHITE CELLS - URINE 0-5 /hpf (0-5)
[2018-08-12 20:45] LABS: HYALINE CAST 0-5 /lpf (NONE SEEN)
[2018-08-12 20:46] LABS: CALCIUM OXALATE CRYSTALS 0-5 /hpf (NONE SEEN)
[2018-08-12 21:00] VITALS: BP 101/52
--- NOTE | 2018-08-12 21:45 | NUR ---
PT SLEEPING ON BED. NO S/S OF ACUTE DISTRESS NOTED.
--- NOTE | 2018-08-12 22:30 | NUR ---
PT RESTING ON BED. PT UPDATED ON PLAN OF CARE. NO S/S OF ACUTE DISTRESS NOTED.
[2018-08-12 23:21] VITALS: BP 100/61
--- NOTE | 2018-08-12 23:40 | NUR ---
PT ASSISTED TO BEDSIDE COMMODE. PT TOLERATED WELL.
[2018-08-13 01:31] VITALS: BP 113/51; BMI 23.6
--- NOTE | 2018-08-13 02:11 | NUR ---
RECIEVED REPORT FROM ER. ARRIVED TO FLOOR IN W/C. ALERT AND ORIENTED X4. C/O LLQ PAIN. IV TO LT FA WITH NS INFUSING AT 125CC/HR. UP WITH ASSIST TO B/R. PACEMAKER TO LT CHEST. STATES PAIN BETTER WITH REST. ASSESMENT COMPLETED. WILL LET HER REST THAN FINISH MED RECONCILIATION AND HX.
[2018-08-13] MEDS ORDERED: CLARITIN 10 MG10 MG PO (04:05)
[2018-08-13 04:30] VITALS: BP 121/47
[2018-08-13 05:27] LABS: BASOPHILS 0 % (0-2); EOSINOPHILS 0 % (0-7); HEMOGLOBIN 14.1 g/dL (12-16); IMMATURE GRANULOCYTES 0.2 % (0-5); LYMPHOCYTES 9.6 % (15-50); MCH 30.3 pg (26.0-34.0); MCHC 33.6 g/dL (31.0-37.0); MCV 90.3 fL (80.0-100.0); MEAN PLATELET VOLUME 10.4 fL (7.4-10.4); MONOCYTES 5.7 % (2-11); NEUTROPHILS 84.5 % (40-80); PLATELET COUNT 144 10x3/uL (130-400); RBC 4.65 10x6/uL (4.00-5.40); RDW 13.7 % (11.5-14.5)
[2018-08-13 05:32] LABS: ALBUMIN 3.2 g/dL (3.4-5.0); ANION GAP 18.3 mmol/L (8-16); BILIRUBIN - TOTAL 0.98 mg/dL (0.2-1.3); CALCIUM 8.7 mg/dL (8.5-10.1); CARBON DIOXIDE 21.6 mmol/L (21.0-32.0); CREATININE - SERUM 1.3 mg/dL (0.6-1.3); PROTEIN - SERUM 6.5 g/dL (6.4-8.2)
[2018-08-13 05:33] LABS: WBC 10.8 10x3/uL (4.8-10.8)
[2018-08-13 05:35] LABS: POTASSIUM - SERUM 4.9 mmol/L (3.5-5.1)
--- NOTE | 2018-08-13 08:02 | NUR ---
REPORT RECEIVED. WILL CONTINUE WITH POC PT CURRENTLY LYING SEMI FOWLERS. CALL LIGHT W/I REACH. PT IS RESTING AT THE MOMENT. RR EVEN AND UNLABORED ON 2L 02. NS INFUSING @125ML/HR VIA L.FOR PIV. L.HAND PIV IS SALINE LOCKED. NO S/S OF DISTRESS NOTED. PT DENIES ANY NEEDS AT THIS TIME. WILL CTM.
[2018-08-13 10:10] VITALS: BMI 23.5
--- NOTE | 2018-08-13 10:58 | NUR ---
PREVIOUS PIV'S INFILTRATED. PIV'S REMOVED WITH CATHETER TIPS FULLY INTACT. INITIATED NEW PIV TO THE RIGHT FOREARM 22GA X1 ATTEMPT. PT TOLERATED WELL. FLUSHED WITH 10ML NS TO CONFIRM PATENCY. NS INFUSING @125ML/HR. PT DENIES ANY NEEDS. WILL CTM.
[2018-08-13 12:37] VITALS: BP 138/61
--- NOTE | 2018-08-13 16:35 | NUR ---
I have reviewed this patient and I concur with the Shift Assessment completed by the Licensed Practical Nurse today this shift.
--- NOTE | 2018-08-13 17:43 | NUR ---
OT NOTE: PT COMPLETED GROOMING TASKS WITH MIN A. PT COMPLETED BED MOB TASKS WITH MIN/MOD A. THANK YOU, KATIE ROA
[2018-08-13 18:52] VITALS: BP 137/52
--- NOTE | 2018-08-13 19:58 | NUR ---
RECIEVED PT FROM MED 2. RESTING BED, BREATHING EVEN AND UNLABORED. NO S/S OF DISTRESS. REQUESTED TYLENOL, CONTACTED GEOVANNI GONCALVES APN FOR ORDER. DENIES OTHER NEEDS AT THIS TIME. WILL CONTINUE TO MONITOR.
[2018-08-13 20:04] VITALS: Ht 160 cm; Wt 60.3 kg
[2018-08-13 20:39] VITALS: BP 118/43
--- NOTE | 2018-08-13 21:02 | NUR ---
ASSISTED PT TO BATHROOM AND BACK TO BED, AMBULATED WELL. NO S/S OF DISTRESS. DENIES OTHER NEEDS AT THIS TIME. WILL CONTINUE TO MONITOR.
--- NOTE | 2018-08-13 23:34 | NUR ---
ADMINISTERED PRN MORPHINE 2MG PER PATIENT REQUEST AND COMPLAINT OF 8/10 PAIN IN SHOULDER AND ABDOMEN. TOLERATED PROCEDURE WELL, NO S/S OF DISTRESS. DENIES OTHER NEEDS AT THIS TIME. WILL CONTINUE TO MONITOR.
--- NOTE | 2018-08-14 01:00 | NUR ---
PT RESTING IN BED SUPINE, WITH EYES CLOSED. BREATHING EVEN AND UNLABORED. VITAL SIGNS STABLE. DENIES OTHER NEEDS AT THIS TIME. WILL CONTINUE TO MONITOR.
[2018-08-14 01:05] VITALS: BP 132/49
--- NOTE | 2018-08-14 03:05 | NUR ---
ASSISTED PT TO BATHROOM AND BACK TO BED. COMPLAINING OF 8/10 PAIN IN SHOULDER AND ADBOMEN, PROVIDED WITH WARM PACK. READJUSTED IN BED. NO S/S OF DISTRESS. DENIES OTHER NEEDS AT THIS TIME. WILL CONTINUE TO MONITOR.
--- NOTE | 2018-08-14 03:27 | NUR ---
I have reviewed this patient and I concur with the Shift Assessment completed by the Licensed Practical Nurse today this shift.
[2018-08-14 04:38] VITALS: BP 148/66
--- NOTE | 2018-08-14 05:00 | NUR ---
PT RESTING COMFORTABLY IN BED. REQUESTED NEW HEATING PACK, PROVIDED. STILL PT COMPLAINS OF 8/10 PAIN IN SHOULDER AND ABDOMEN. NO S/S OF DISTRESS NOTED. DENIES OTHER NEEDS AT THIS TIME. CALL LIGHT WITHIN REACH, BED IN LOWEST POSITION, BED RAILS X2. WILL CONTINUE TO MONITOR.
--- NOTE | 2018-08-14 06:08 | NUR ---
PT RESTING IN BED SUPINE WITH EYES CLOSED, BREATHING EVEN AND UNLABORED. NO S/S OF DISTRESS. CALL LIGHT WITHIN REACH, BEDRAILS X2, BED IN LOWEST POSITION. WILL CONTINUE TO MONITOR.
--- NOTE | 2018-08-14 07:00 | NUR ---
PT RESTING, EYES CLOSED. RR EVEN AND UNLABORED. NO DISTRESS NOTED. WILL CONTINUE TO MONITOR.
[2018-08-14 07:08] LABS: BASOPHILS 0.1 % (0-2); EOSINOPHILS 0.3 % (0-7); HEMATOCRIT 39.8 % (36.0-48.0); HEMOGLOBIN 12.9 g/dL (12-16); IMMATURE GRANULOCYTES 0.5 % (0-5); LYMPHOCYTES 10.3 % (15-50); MCH 30.1 pg (26.0-34.0); MCHC 32.4 g/dL (31.0-37.0); MONOCYTES 3.3 % (2-11); NEUTROPHILS 85.5 % (40-80); RBC 4.28 10x6/uL (4.00-5.40); RDW 14.3 % (11.5-14.5); WBC 10.6 10x3/uL (4.8-10.8)
[2018-08-14 07:14] LABS: PLATELET COUNT 110 10x3/uL (130-400)
[2018-08-14 07:30] LABS: ALBUMIN 2.9 g/dL (3.4-5.0); ANION GAP 13.4 mmol/L (8-16); BILIRUBIN - TOTAL 1.14 mg/dL (0.2-1.3); CALCIUM 8.5 mg/dL (8.5-10.1); CARBON DIOXIDE 24.9 mmol/L (21.0-32.0); MAGNESIUM - SERUM 1.6 mg/dL (1.8-2.4); POTASSIUM - SERUM 4.3 mmol/L (3.5-5.1); PROTEIN - SERUM 6.7 g/dL (6.4-8.2)
[2018-08-14 07:41] LABS: CREATININE - SERUM 0.9 mg/dL (0.6-1.3)
[2018-08-14 08:00] VITALS: BP 133/58
--- NOTE | 2018-08-14 13:13 | NUR ---
OT NOTE: CONT TO REPORT PAIN WITH ALL MOBILITY. BED MOB WITH MIN ASSIST DUE TO PAIN; AMB INTO HALLWAY ( APPROX 40-50 FT) WITH WALKER AND MIN ASSIST. LE CLOTHING MGMT WITH MIN ASSIST. SIMPLE GROOMING WITH SET UP. GUNNAR LANCASTER, OTR/LL
[2018-08-14 16:00] VITALS: BP 129/59
--- NOTE | 2018-08-14 18:39 | NUR ---
I have reviewed this patient and I concur with the Shift Assessment completed by the Licensed Practical Nurse today this shift.
--- NOTE | 2018-08-14 20:00 | NUR ---
PT RESTING SUPINE IN BED. BREATHING EVEN AND UNLABORED. NO S/S OF DISTRESS. DENIES OTHER NEEDS AT THIS TIME. CALL LIGHT WITHIN REACH, BED RAILS X2. WILL CONTINUE TO MONITOR.
[2018-08-14 21:03] VITALS: BP 112/58
--- NOTE | 2018-08-14 22:30 | NUR ---
ASSISTED PT TO BATHROOM AND BACK TO BED. AMBULATED WELL. READJSUTED IN BED. COMPLAINING OF ADOMINAL PAIN, DID NOT REQUEST ANY MEDICATION FOR PAIN. NO S/S OF DISTRESS. DENIES OTHER NEEDS AT THIS TIME. BED IN LOWEST POSITION, BEDRAILS X2, CALL LIGHT WITHIN REACH. WILL CONTINUE TO MONITOR.
[2018-08-15 00:34] VITALS: BP 107/80
--- NOTE | 2018-08-15 00:40 | NUR ---
PT RESTING IN BED SUPINE. VITALS AND SHIFT ASSESSMENT NOTED AT THIS TIME. VITALS ARE STABLE AT THIS TIME. NO S/S OF DISTRESS. DENIES OTHER NEEDS AT THIS TIME. BED IN LOWEST POSITION, BEDRAILS X2, CALL LIGHT WITHIN REACH. WILL CONTINUE TO MONITOR.
--- NOTE | 2018-08-15 02:34 | NUR ---
PT RESTING SUPINE IN BED WITH EYES CLOSED. NO S/S OF DISTRESS, BREATHING EVEN AND UNLABORED. BED IN LOWEST POSITION, BEDRAILS X2, CALL LIGHT WITHIN REACH. WILL CONTINUE TO MONITOR.
--- NOTE | 2018-08-15 02:48 | NUR ---
I have reviewed this patient and I concur with the Shift Assessment completed by the Licensed Practical Nurse today this shift.
[2018-08-15 04:36] VITALS: BP 144/55
--- NOTE | 2018-08-15 04:40 | NUR ---
4 AM VTIALS ASSESSED AT THIS TIME. ALL VITALS STABLE. MILD ELEVATION IN BLOOD PRESSURE, PT DENIES ANY DISTRESS. PT COMPLAINS OF ABDOMINAL PAIN AND SHOULDER PAIN, DID NOT REQUEST ANY PAIN MEDICATION AT THIS TIME. DENIES OTHER NEEDS AT THIS TIME. BED IN LOWEST POSITION, BEDRAILS X2, CALL LIGHT WITHIN REACH. WILL CONTINUE TO MONITOR.
--- NOTE | 2018-08-15 06:18 | NUR ---
ADMNISTERED MORNING MEDICATION AT THIS TIME. NO TROUBLE SWALLOWING. DENIES OTHER NEEDS AT THIS TIME. NO S/S OF DISTRESS. BED IN LOWEST POSITION, BEDRAILS X2, CALL LIGHT WITHIN REACH. WILL CONTINUE TO MONITOR.
--- NOTE | 2018-08-15 06:45 | NUR ---
PT HAD EPISODE OF BOWEL INCONTINENCE. LINENS CHANGED, PT CLEANED AND OFFERED GOWN AND BRIEF. AMBULATED TO BATHROOM AND BACK. TOLERATED WELL. WILL CONTINUE TO MONITOR.
[2018-08-15 07:16] LABS: BASOPHILS 0.1 % (0-2); EOSINOPHILS 1.1 % (0-7); HEMATOCRIT 38.2 % (36.0-48.0); HEMOGLOBIN 12.6 g/dL (12-16); IMMATURE GRANULOCYTES 0.4 % (0-5); LYMPHOCYTES 15.1 % (15-50); MCH 30.7 pg (26.0-34.0); MCV 92.9 fL (80.0-100.0); MEAN PLATELET VOLUME 10.4 fL (7.4-10.4); MONOCYTES 4.3 % (2-11); PLATELET COUNT 119 10x3/uL (130-400); RBC 4.11 10x6/uL (4.00-5.40); RDW 13.9 % (11.5-14.5); WBC 8.6 10x3/uL (4.8-10.8)
[2018-08-15 07:42] LABS: ALBUMIN 2.8 g/dL (3.4-5.0); ALKALINE PHOSPHATASE 60 U/L (46-116); ALT (SGPT) 37 U/L (10-68); CALCIUM 8.6 mg/dL (8.5-10.1); CARBON DIOXIDE 27.6 mmol/L (21.0-32.0); CHLORIDE - SERUM 106 mmol/L (98-107); GLUCOSE 124 mg/dL (74-106); POTASSIUM - SERUM 3.8 mmol/L (3.5-5.1); PROTEIN - SERUM 6.9 g/dL (6.4-8.2); SODIUM 142 mmol/L (136-145)
[2018-08-15 07:47] LABS: CALC OSMOLALITY 282 mosm/kg (275-300); CREATININE - SERUM 0.6 mg/dL (0.6-1.3); UREA NITROGEN 11 mg/dL (7-18); eGFR NON AFRICAN AMERICAN > 90 mL/min (90-120)
--- NOTE | 2018-08-15 08:09 | NUR ---
ASSISTED BACK TO BED FROM BATHROOM. SLIGHT DYSPNEA UPON EXERTION. C/O UPPER RIGHT ABDOMINAL PAIN. WILL ADMINISTER MORPHINE ORDERED. OTHERWISE NO DISTRESS NOTED. WILL CONTINUE TO MONITOR.
[2018-08-15 08:31] VITALS: BP 155/80
--- NOTE | 2018-08-15 11:00 | NUR ---
PT PLACED ON ENTERIC PRECAUTIONS. FAMILY AND PT NOTIFIED AND EDUCATED ON PROPER PPE WEAR AND PROPER HAND HYGIENE.
[2018-08-15 12:28] VITALS: BP 131/64
--- NOTE | 2018-08-15 12:50 | NUR ---
OT NOTE: PT REPORTED FEELING SOME BETTER, BUT STILL WITH R QUADRANT ABD PAIN WITH DEEP BREATHING AND BED MOB; AMB GREATER THAN 150 FT WITH RW AND 02 SATS ABOVE 91..HOWEVER, DROPPED TO AROUND 87 UPON SITTING DOWN IN BED. QUICKLY BACK UP TO 93 WITH DEEP BREATHING TECH. ABLE TO PERFORM LE DRESSING WITH MIN ASSIST AND SIMPLE GROOMING WITH SET UP. GUNNAR [place], OTR/L
--- NOTE | 2018-08-15 17:12 | NUR ---
I have reviewed this patient and I concur with the Shift Assessment completed by the Licensed Practical Nurse today this shift.
[2018-08-15 18:15] VITALS: BP 142/56
--- NOTE | 2018-08-15 19:13 | NUR ---
PT RESTING SUPINE IN BED WITH EYES CLOSED, BREATHING EVEN AND UNLABORED. NO S/S OF DISTRESS. BED IN LOWEST POSITION, BEDRAILS X2, CALL LIGHT WITHIN REACH. WILL CONTINUE TO MONITOR.
[2018-08-15 20:30] VITALS: BP 135/46
--- NOTE | 2018-08-15 21:46 | NUR ---
PT RESTING SUPINE IN BED WITH EYES CLOSED. BREATHING EVEN AND SHALLOW, APPEARS UNLABORED. NO S/S OF DISTRESS. BED IN LOWEST POSITION, BEDRAILS X2, CALL LIGHT WITHIN REACH. WILL CONTINUE TO MONITOR.
[2018-08-16] VITALS (9 sets, daily range): BP systolic 126–142; BP diastolic 52–75
--- NOTE | 2018-08-16 00:28 | NUR ---
MIDNIGHT VITALS ASSESSED AT THIS TIME, ALL STABLE AT THIS TIME. PT COMPLAINS OF PAIN IN LOWER ABDOMEN. DENIES ANY OTHER NEEDS AT THIST [place]LE[place]. PT IS NOW NPO FOR CHOLECYSTECTOMY TODAY 08/16. BED IN LOWEST POSITION, BEDRAILS X2, CALL LIGHT WITHIN REACH. WILL CONTINUE TO MONITOR.
--- NOTE | 2018-08-16 02:04 | NUR ---
PT RESTING SUPINE IN BED. BREATHING SHALLOW AND EVEN, PT IS ON 4L OF O2 VIA NASAL CANNULA. NO S/S OF DISTRESS. BED IN LOWEST POSITION, BEDRAILS X2, CALL LIGHT WITHIN REACH. WILL CONTINUE TO MONITOR.
--- NOTE | 2018-08-16 04:42 | NUR ---
PT RESTING SUPINE IN BED WITH EYES CLOSED, BREATHING SHALLOW AND EVEN. PT IS ON 4L O2 VIA NASAL CANNULA. NO S/S OF DISTRESS. LAB ENTERED THE ROOM AT THIS TIME FOR MORNING LAB DRAWS. BED IN LOWEST POSITION, BEDRAILS X2, CALL LIGHT WITHIN REACH. WILL CONTINUE TO MONITOR.
[2018-08-16 05:49] LABS: BASOPHILS 0.1 % (0-2); EOSINOPHILS 0 % (0-7); HEMATOCRIT 38.6 % (36.0-48.0); HEMOGLOBIN 12.8 g/dL (12-16); IMMATURE GRANULOCYTES 0.3 % (0-5); LYMPHOCYTES 10.1 % (15-50); MCH 30.5 pg (26.0-34.0); MCHC 33.2 g/dL (31.0-37.0); MCV 91.9 fL (80.0-100.0); MEAN PLATELET VOLUME 10.7 fL (7.4-10.4); MONOCYTES 7.2 % (2-11); NEUTROPHILS 82.3 % (40-80); PLATELET COUNT 134 10x3/uL (130-400); RDW 14.1 % (11.5-14.5); WBC 7.6 10x3/uL (4.8-10.8)
--- NOTE | 2018-08-16 06:33 | NUR ---
ADMINISTERED PRN MORPHINE FOR CONSTANT ABDOMINAL PAIN. DENIES OTHER NEEDS AT THIS TIME. BED IN LOWEST POSITION, BEDRAILS X2, CALL LIGHT WITHIN REACH. WILL CONTINUE TO MONITOR.
[2018-08-16 06:36] LABS: ALBUMIN 2.3 g/dL (3.4-5.0); ALKALINE PHOSPHATASE 52 U/L (46-116); ALT (SGPT) 33 U/L (10-68); BILIRUBIN - TOTAL 1.06 mg/dL (0.2-1.3); CALCIUM 8.3 mg/dL (8.5-10.1); CARBON DIOXIDE 24.7 mmol/L (21.0-32.0); CHLORIDE - SERUM 107 mmol/L (98-107); CREATININE - SERUM 0.6 mg/dL (0.6-1.3); SODIUM 140 mmol/L (136-145); eGFR NON AFRICAN AMERICAN > 90 mL/min (90-120)
[2018-08-16 06:37] LABS: CALC OSMOLALITY 284 mosm/kg (275-300); GLUCOSE 177 mg/dL (74-106); UREA NITROGEN 17 mg/dL (7-18)
--- NOTE | 2018-08-16 07:45 | NUR ---
PT ALERT AND ORIENTED. NO DISTRESS NOTED. RR EVEN AND UNLABORED. VSS. WILL CONTINUE TO MONITOR.
--- NOTE | 2018-08-16 09:54 | NUR ---
Nutrition Follow Up: Chart reviewed. Pt is NPO for Lap Kaet today. Pt was eating 25% meal avg on a regular diet prior to this. BM: 08/16/18 Labs reviewed - Glucose elevated Meds noted including Flagyl, Reglan Rec resuming DANIEL when medically feasible. RD following.
--- NOTE | 2018-08-16 14:00 | NUR ---
PT TRANSPORTED TO SURGERY VIA BED.
--- NOTE | 2018-08-16 14:34 | MORECARE ---
CASE MANAGEMENT DISCHARGE SUMMARY PATIENT: SIMON THOMPSON UNIT: [id number] ADM DATE: 08/13/18 AGE: 82 : 34 SEX: F ROOM/BED: D.1204 AUTHOR: RACH NOLAN PHYSICIAN: REFERRING PHYSICIAN: JANET BONILLA MD DATE OF SERVICE: 08/16/18 Discharge Plan Patient Name: SIMON THOMPSON Facility: [facility]:[place] : 1935 Planned Disposition: Anticipated Discharge Date: Discharge Date: Expected LOS: Initial Reviewer: [email or web address] Initial Review Date: 08/16/2018 Generated: 08/16/18 3:33 pm Patient Name: SIMON THOMPSON Page 40415 at 1434 All edits/amendments must be made on the electronic document DICTATION DATE: 08/16/18 143 LEASING ASSISTANT: MONIKA 08/16/18 1433 RPT#: [id number] DC DATE: STATUS: ADM IN [facility] [address] [place] [address] END OF REPORT
--- NOTE | 2018-08-16 14:44 | MORECARE ---
CASE MANAGEMENT DISCHARGE SUMMARY PATIENT: SIMON THOMPSON UNIT: [id number] ADM DATE: 08/13/18 AGE: 82 : 34 SEX: F ROOM/BED: D.1204 AUTHOR: RACH NOLAN PHYSICIAN: REFERRING PHYSICIAN: JANET BONILLA MD DATE OF SERVICE: 08/16/18 Discharge Plan Patient Name: SIMON THOMPSON Facility: [facility]:[place] : 1935 Planned Disposition: Anticipated Discharge Date: Discharge Date: Expected LOS: Initial Reviewer: [email or web address] Initial Review Date: 08/16/2018 Generated: 08/16/18 3:44 pm Last DP export: 08/16/18 1:33 p Patient Name: SIMON THOMPSON Page 59313 at 1444 All edits/amendments must be made on the electronic document DICTATION DATE: 08/16/18 144 BURN TABLE OPERATOR: MONIKA 08/16/18 1444 RPT#: [id number] DC DATE: STATUS: ADM IN [facility] [address] [place] [address] END OF REPORT
--- NOTE | 2018-08-16 15:12 | MORECARE ---
CASE MANAGEMENT DISCHARGE SUMMARY PATIENT: SIMON THOMPSON UNIT: [id number] ADM DATE: 08/13/18 AGE: 82 : 34 SEX: F ROOM/BED: D.1204 AUTHOR: RACH NOLAN PHYSICIAN: REFERRING PHYSICIAN: JANET BONILLA MD DATE OF SERVICE: 08/16/18 Discharge Plan Patient Name: SIMON THOMPSON Facility: [facility]:[place] : 1935 Planned Disposition: Anticipated Discharge Date: Discharge Date: Expected LOS: Initial Reviewer: [email or web address] Initial Review Date: 08/16/2018 Generated: 08/16/18 4:11 pm Last DP export: 08/16/18 1:44 p Patient Name: SIMON THOMPSON Page 38864 at 1512 All edits/amendments must be made on the electronic document DICTATION DATE: 08/16/181510 SUPERVISOR MELT HOUSE: MONIKA 08/16/181510 RPT#: [id number] DC DATE: STATUS: ADM IN [facility] [address] [place] [address] END OF REPORT
--- NOTE | 2018-08-16 16:45 | NUR ---
PT BECAME MORE AND MORE HYPERTENSIVE AND TACHYCARDIC, SEE FLOWSHEET. PT ALSO APPEARS MORE LABORED WITH BREATHING AND HAD VERY SHALLOW BREATHING. LUNGS ARE VERY DIMINISHED THROUGHOUT ALL LOBES. NEW ORDERS REC'D AND ANESTHESIA NOTIFIED AND AT BEDSIDE. ABGS BEING DONE. WILL STAND AT BEDSIDE AND CTM CLOSELY.
--- NOTE | 2018-08-16 17:16 | NUR ---
ATTEMPTED TO NOTIFY FAMILY HOWEVER UNABLE TO LOCATE THEM. WILL TRY AGAIN SHORTLY. CURRENTLY AWAITING ICU BED.
--- NOTE | 2018-08-16 17:23 | NUR ---
Karissa.BREVING AT BEDSIDE AND NEW ORDERS OBTAINED. TRANSFERING TO ICU. PT IS CURRENTLY STABLE ON BIPAP @60% AWAITING ROOM TO BE CLEAN. STILL UNABLE TO LOCATE FAMILY. PT ATTEMPTING TO PULL BIPAP OFF, EXPLAINED REASONING. PT CALM. VSS. WILL CTM.
--- NOTE | 2018-08-16 18:18 | NUR ---
PT ASSISTED INTO ICU BED, PT AWAKE AND ALERT, MONITORS ON AND WORKING, VITALS STABLE, CALL LIGHT WITHIN REACH, WILL CONTINUE TO OBSERVE.
--- NOTE | 2018-08-16 19:30 | NUR ---
ASSESSED AT THE BEGINNING OF THE SHIFT. Han Bartlett IS ALERT AND ORIENTED, ABLE TO VERBALIZE NEEDS. SHE WAS UPSET BECAUSE SHE DID NOT KNOW WHY SHE WAS NOT TAKEN BACK TO HER ORIGINAL ROOM. IT WAS EXPLAINED WHY SHE WAS SENT TO ICU AND TOLD THAT SHE WAS DOING WELL AND WOULD BE ABLE TO GO A FLOOR ROOM IN THE MORNING. NO PROBLEMS NOTED AT THIS TIME.
--- NOTE | 2018-08-16 21:29 | NUR ---
PT HAS BEEN RESTING QUIUET AFTER BEING GIVEN SOME MORPHINE AND ZOFRAN FOR ABD PAIN.
--- NOTE | 2018-08-16 23:00 | NUR ---
RESTING QUIET WITH NO DISTRESS NOTED AT THIS TIIME. EASY TO AROUSE.
[2018-08-17] VITALS (12 sets, daily range): BP systolic 123–169; BP diastolic 63–85
--- NOTE | 2018-08-17 00:04 | NUR ---
ASSESSED WITH BEDPAN AND PT VOIDED 200 DARK PÉREZ URINE. VERY PLEASANT AND TALKATIVE. WANTING TO BE ABLE TO GO HOME TOMORROW. ABDOMEN IS STILL DISTENDED AND SHE KNOWS THAT IT WILL TAKE TIME TO GET ALL THE AIR OUT.
--- NOTE | 2018-08-17 00:40 | NUR ---
PT IS RESTING QUEIT WITH EASY RESPIRATIONS AND NO DISTRESS NOTED. SHE CONTINUES TO WEAR HER SCD'S.
--- NOTE | 2018-08-17 03:30 | NUR ---
PT ASSISTED WITH BEDPAN AND VOIDED 500 CC'S OF DARK PÉREZ URINE. WE THEN ASSISTED HER WITH A BATH AND LINEN CHANGE.
--- NOTE | 2018-08-17 04:11 | NUR ---
PT REQUESTED PAIN MEDS AFTER RECEIVING A BATH. AT THIS TIME SHE IS RESTING QUITE WITH NO COMPLAINTS. EASY TO AROUSE.
--- NOTE | 2018-08-17 06:00 | NUR ---
RESTING QUIET WITH NO COMPLAINTS. NAPPING OFF AND ON BUT STATES SHE IS NOT SLEEPING SOUND. HAS NOT REQUESTED ANY MORE PAIN MEDS. VERY PLEASANT.
--- NOTE | 2018-08-17 07:10 | NUR ---
PATIENT RECIEVED FROM PREVIOUS SHIFT RESTING WITH NO DISTRESS, 02 100% 0N 3L, DECREASED O2 TO 2L. CARLITON DENIES NEED FOR PAIN MEDICATION AT THIS TIME, BUT REPORTS SORNESS AT INCISION SITES. CL IN EASY REACH
[2018-08-17 07:49] LABS: BASOPHILS 0.1 % (0-2); EOSINOPHILS 0 % (0-7); HEMATOCRIT 34.4 % (36.0-48.0); HEMOGLOBIN 11.5 g/dL (12-16); IMMATURE GRANULOCYTES 0.6 % (0-5); MCH 30.3 pg (26.0-34.0); MCHC 33.4 g/dL (31.0-37.0); MCV 90.5 fL (80.0-100.0); NEUTROPHILS 83.3 % (40-80); PLATELET COUNT 133 10x3/uL (130-400); RDW 14.1 % (11.5-14.5); WBC 8.2 10x3/uL (4.8-10.8)
--- NOTE | 2018-08-17 08:11 | NUR ---
Nutrition follow-up: Pt now in ICU s/p Lap Kate PO intake poor Labs reviewed Abdomen distended RDN following.
[2018-08-17 08:19] LABS: ALBUMIN 2.2 g/dL (3.4-5.0); ALKALINE PHOSPHATASE 53 U/L (46-116); ALT (SGPT) 49 U/L (10-68); BILIRUBIN - TOTAL 0.52 mg/dL (0.2-1.3); CALC OSMOLALITY 293 mosm/kg (275-300); CALCIUM 8.3 mg/dL (8.5-10.1); CARBON DIOXIDE 27.2 mmol/L (21.0-32.0); CHLORIDE - SERUM 108 mmol/L (98-107); CREATININE - SERUM 0.6 mg/dL (0.6-1.3); GLUCOSE 183 mg/dL (74-106); MAGNESIUM - SERUM 2.2 mg/dL (1.8-2.4); POTASSIUM - SERUM 3.9 mmol/L (3.5-5.1); PROTEIN - SERUM 6.2 g/dL (6.4-8.2); SODIUM 143 mmol/L (136-145); UREA NITROGEN 25 mg/dL (7-18); eGFR NON AFRICAN AMERICAN > 90 mL/min (90-120)
[2018-08-17 08:21] LABS: TROPONIN-I 0.128 ng/mL (0.000-0.060)
--- NOTE | 2018-08-17 09:00 | NUR ---
PATIENT RESTING WITH NO DISTRESS, RESPIRATIONS NON-LABORED AT THIS TIME. 02 SAT 97% ON 2LPM/NC, DENIES PAIN, CL IN REACH. ASSISTED WITH BEDPAN, DARK YELLOW URINE NOTED
[2018-08-17 10:10] LABS: HEPATITIS C ANTIBODY <0.1 S/CO RAT (0.0-0.9)
--- NOTE | 2018-08-17 11:11 | NUR ---
PATIENT ASSISTED WITH BEDPAN WITH DARK YELLOW URINE NOTED. PATIENT REPORTS PASSING GAS ALTHOUGH NO BM. MORPHINE 2MG GIVEN FOR ABDOMINAL PAIN
--- NOTE | 2018-08-17 11:27 | NUR ---
PATIENT OFF FLOOR FOR PRODUCT SUPPORT REPRESENTATIVE
--- NOTE | 2018-08-17 11:27 | NUR ---
PATIENT REPORTS PAIN RELIEVED WITH MORPHINE. 02 SAT 88-89% ON ROOM AIR. PLACED BACK ON 02 2LPM NC
--- NOTE | 2018-08-17 11:28 | MORECARE ---
CASE MANAGEMENT DISCHARGE SUMMARY PATIENT: SIMON THOMPSON UNIT: [id number] ADM DATE: 08/13/18 AGE: 82 : 34 SEX: F ROOM/BED: D.2304 AUTHOR: RACH NOLAN PHYSICIAN: REFERRING PHYSICIAN: JANET BONILLA MD DATE OF SERVICE: 08/17/18 Discharge Plan Patient Name: SIMON THOMPSON Facility: [facility]:[place] : 1935 Planned Disposition: Anticipated Discharge Date: Discharge Date: Expected LOS: Initial Reviewer: [email or web address] Initial Review Date: 08/16/2018 Generated: 08/17/18 12:27 pm Last DP export: 08/16/18 2:12 p Patient Name: SIMON THOMPSON Page 50352 at 1128 All edits/amendments must be made on the electronic document DICTATION DATE: 08/17/181126 CLINICAL PROGRAMMER: MONIKA 08/17/18 112 RPT#: [id number] DC DATE: STATUS: ADM IN [facility] [address] [place] [address] END OF REPORT
--- NOTE | 2018-08-17 11:36 | MORECARE ---
CASE MANAGEMENT DISCHARGE SUMMARY PATIENT: SIMON THOMPSON UNIT: [id number] ADM DATE: 08/13/18 AGE: 82 : 34 SEX: F ROOM/BED: D.2304 AUTHOR: RACH NOLAN PHYSICIAN: REFERRING PHYSICIAN: JANET BONILLA MD DATE OF SERVICE: 08/17/18 Discharge Plan Patient Name: SIMON THOMPSON Facility: [facility]:[place] : 1935 Planned Disposition: Anticipated Discharge Date: Discharge Date: Expected LOS: Initial Reviewer: [email or web address] Initial Review Date: 08/16/2018 Generated: 08/17/18 12:35 pm Comments DCP- Discharge Planning Updated by [email or web address]: Jazmín Berger on 08/17/18 10:[address] Patient Name: SIMON THOMPSON Admission Status: ER Accout number: [id number] Admission Date: 08-13-2018 : 1935 Admission Diagnosis:UNSPECIFIED ABDOMINAL PAIN Attending: JANET BONILLA Current LOS: 4 Anticipated DC Date: Planned Disposition: Primary Insurance: MEDICARE A & B Discharge Planning Comments: CM WENT TO MEET WITH PATIENT, SHE IS SLEEPING, RN SAID SHE JUST RECEIVED PAIN MEDICATION. I CALLED HER DAUGHTER CLIF HIDALGO AT [phone], NO ANSWER, LEFT [facility] [place] HER TO CALL ME BACK IN ORDER TO COMPLETE ASSESMENT. CM TO FOLLOW AND ASSIST. Marketing Support Assistant: Jazmín Berger DCPIA - Discharge Planning Initial Assessment Updated by [email or web address]: Jazmín Berger on 08/17/18 11:28 am * Is the patient Alert and Oriented? No * PCP AL-DADAD * Preadmission Environment Home Alone * List name and contact numbers for known caregivers / representatives who currently or will assist patient after discharge: CLIF HIDALGO, DAUGHTER, * Has this patient been hospitalized within the prior 30 days at any hospital? No Last DP export: 08/17/18 10:27 a Patient Name: SIMON THOMPSON Page 43607 at 1136 All edits/amendments must be made on the electronic document DICTATION DATE: 08/17/181134 WELDER SETTER RESISTANCE MACHINE: MONIKA 08/17/18 113 RPT#: [id number] NC DATE: STATUS: ADM IN [facility] [address] [place] [address] END OF REPORT
--- NOTE | 2018-08-17 12:25 | NUR ---
PATIENT RESTING IN BED WITH FAMILY PRESENT. WAITING TRANSFER TO FLOOR
--- NOTE | 2018-08-17 12:45 | NUR ---
[facility]
--- NOTE | 2018-08-17 12:58 | NUR ---
ZOFRAN GIVEN IV FOR NAUSEA AND VOMITING
--- NOTE | 2018-08-17 13:50 | NUR ---
PATIENT ARRIVED TO UNIT. RFA IV PATENT. O2 AT 2L. LUNGS DIMINISHED. BOWEL SOUNDS ACTIVE. 5 LAP SITES ON ABDOMEN. ZACK IN ROOM. CL IN REACH WILL CONTINUE TO MONITOR.
--- NOTE | 2018-08-17 15:56 | MORECARE ---
CASE MANAGEMENT DISCHARGE SUMMARY PATIENT: SIMON THOMPSON UNIT: [id number] ADM DATE: 08/13/18 AGE: 82 : 34 SEX: F ROOM/BED: D.2224 AUTHOR: RACH NOLAN PHYSICIAN: REFERRING PHYSICIAN: JANET BONILLA MD DATE OF SERVICE: 08/17/18 Discharge Plan Patient Name: SIMON THOMPSON Facility: [facility]:[place] : 1935 Planned Disposition: Anticipated Discharge Date: Discharge Date: Expected LOS: Initial Reviewer: [email or web address] Initial Review Date: 08/16/2018 Generated: 08/17/18 4:56 pm Comments DCP- Discharge Planning Updated by [email or web address]: Marie Wendie on 08/17/18 2:[address] CM met with daughter to discuss discharge planning. Patient lives alone, she has 2 steps to enter into her home and no stairs inside. She is completely independent of all ADL's and AIDL's. She has no medical equipment at home. I discussed the availability of inpatient rehab, SNF, home health and DME needs. Her daughter states at this time, she is unsure of any needs. CM will continue to follow and assist with discharge planning/needs. DCP- Discharge Planning Updated by [email or web address]: Jazmín Berger on 08/17/18 10:[address] Patient Name: SIMON THOMPSNO Admission Status: ER Accout number: [id number] Admission Date: 08-13-2018 : 1935 Admission Diagnosis:UNSPECIFIED ABDOMINAL PAIN Attending: JANET BONILLA Current LOS: 4 Anticipated DC Date: Planned Disposition: Primary Insurance: MEDICARE A & B Discharge Planning Comments: CM WENT TO MEET WITH PATIENT, SHE IS SLEEPING, RN SAID SHE JUST RECEIVED PAIN MEDICATION. I CALLED HER DAUGHTER CLIF HIDALGO AT [phone], NO ANSWER, LEFT [place] FOR HER TO CALL ME BACK IN ORDER TO COMPLETE ASSESMENT. CM TO FOLLOW AND ASSIST. Acute Care Clinical Nurse Specialist: Jazmín Berger DCPIA - Discharge Planning Initial Assessment Updated by [email or web address]: Jazmín Berger on 08/17/18 11:28 am * Is the patient Alert and Oriented? No * PCP DEVI * Preadmission Environment Home Alone * List name and contact numbers for known caregivers / representatives who currently or will assist patient after discharge: CLIF HIDALGO, DAUGHTER, * Has this patient been hospitalized within the prior 30 days at any hospital? No Last DP export: 08/17/18 10:35 a Patient Name: SIMON THOMPSON Page 32841 at 1556 All edits/amendments must be made on the electronic document DICTATION DATE: 08/17/18 1556 STUDENT NURSE: MONIKA 08/17/186 RPT#: [id number] DC DATE: STATUS: ADM IN [facility] [address] [place] [address] END OF REPORT
--- NOTE | 2018-08-17 16:07 | OP ---
PATIENT NAME: SIMON THOMPSON MEDICAL RECORD: [id number] :[birth year] LOCATION:D.MS Jay2224 ADMISSION DATE:08/13/18 SURGEON: KELLIE ROWELL MD DATE OF OPERATION: 08/16/2018 PREOPERATIVE DIAGNOSIS: Symptomatic gallstones. POSTOPERATIVE DIAGNOSES: 1. Symptomatic gallstones. 2. Advanced cirrhosis. 3. Exudate over the liver, perhaps indicative of acute hepatitis. 4. Bilious ascites. 5. Intraabdominal adhesions. PROCEDURES: 1. Laparoscopic cholecystectomy. 2. Intraoperative cholangiography without immediate surgeon interpretation. 3. A 14-gauge core needle liver biopsy. SURGEON: Kellie Rowell MD BODY AND FRAME MAN: None. BLOOD LOSS: 25 cc. ANESTHESIA: General. COMPLICATIONS: None. The risks, possible complications, and alternatives to the procedure were explained to the patient. She elects to proceed. The discussion specifically included, but was not limited to, bleeding requiring emergency reoperation, infection, intestinal injury, common bile duct injury. The indication for liver biopsy was cirrhosis. OPERATIVE COURSE: The patient was conveyed to the operating room electively on 08/16/2018. General anesthesia was induced by the anesthesia staff. The abdomen was sterilely prepped and draped. An incision was accomplished in the left upper quadrant. Veress needle was inserted through the skin incision. CO2 insufflation was begun. After insufflation had been performed, a 5-mm trocar was inserted in the left upper quadrant. Under direct internal vision utilizing a television camera, a 5-mm trocar was inserted in the right upper quadrant. Another 5-mm trocar was inserted far laterally in the right upper quadrant. A 12-mm trocar was inserted through an incision at the umbilicus. During insertion of the Veress needle and all trocars, there appeared to have been no injury to the bowels, any intraperitoneal or retroperitoneal structures. There were stigmata of portal hypertension including enlarged omental vessels and some bridging vessels across adhesions. Adhesions were taken down with electrocautery. Under laparoscopic guidance, I percutaneously accessed the right upper quadrant utilizing a 14-gauge core needle liver biopsy device. Cores were obtained over the convexity of the liver. The biopsy sites were made hemostatic with OPERATIVE REPORT [id number] SIMON THOMPSON electrocautery. I then advanced a cholangiogram trocar. I punctured the fundus of the gallbladder. I aspirated bile. I then injected dye. Under real time fluoroscopy, static fluoroscopic images were obtained. These were cholangiographic images and they are sent to the radiologist for interpretation. I then aspirated bile and removed the cholangiogram trocar. The gallbladder was grasped and retracted cephalad. The infundibulum was grasped and retracted laterally. Blunt dissection was begun in the triangle of Calot. One cystic artery and one cystic duct were identified. These were clipped multiply and divided between clips. The gallbladder was excised from its bed in the liver. It was placed within a bag retrieval device and was withdrawn through the umbilical fascia defect. The 12-mm trocars were placed and the abdomen was reinsufflated. I irrigated and aspirated the right upper quadrant. There was no bleeding even at low pressure of 8. The Kevin-Puneet suture closure device and #0 Vicryl sutures were used to close the umbilical fascia. All the trocars were removed and the abdomen was desufflated. Skin incision at the umbilicus was closed with interrupted 4-0 Vicryl Rapide sutures. The other skin incisions were closed with interrupted intracuticular 3-0 Vicryls. Benzoin and Steri-Strips were applied. The patient was then conveyed to the postanesthesia care unit. She was having some ventilatory problems and is going to transferred to the ICU. TRANSINT:[id number] Voice Confirmation ID: [id number] DOCUMENT ID: [id number] KELLIE ROWELL MD at 1607 CC: LADI DE LA CRUZ [id number] DICTATION DATE: 08/16/181746 LIABILITY CLAIMS REPRESENTATIVE: 08/16/18 1820 ADM IN [facility] [address] [place] [id number]
--- NOTE | 2018-08-17 19:15 | NUR ---
RECEIVED CARE FROM DAY NURSE. LYING IN BED WITH EYES CLOSED. CALL LIGHT AT SIDE. IV INFUSING AT KVO TO RIGHT WRIST. NO DISTRESS NOTED.
--- NOTE | 2018-08-17 20:40 | NUR ---
APPPEARS SOB BUT REPORTS NO TROUBLE BREATHING. O2 90%. RT CALLED TO ROOM. BREATHING TX GIVEN AND SATING NOW AT 94% WITH O2 RAISED TO 2L FROM 1L. DISCUSSED USE OF BI-PAP. RT STATES THAT THE BI-PAP WILL MAKE THE STOMACH MORE SWOLLEN. PT STATES SHE DOESNT WANT THAT TO HAPPEN. BI-PAP HELD AT THIS TIME. WILL CONTINUE TO MONITOR. BREATHING DOES APPEAR EASIER NOW THAT UPDRAFT IS COMPLETE.
[2018-08-18] VITALS: BP 110/68
--- NOTE | 2018-08-18 03:43 | NUR ---
I have reviewed this patient and I concur with the Shift Assessment completed by the Licensed Practical Nurse today this shift.
[2018-08-18 04:00] VITALS: BP 147/80
[2018-08-18 06:23] LABS: BASOPHILS 0.3 % (0-2); EOSINOPHILS 0.4 % (0-7); HEMATOCRIT 35.8 % (36.0-48.0); HEMOGLOBIN 11.9 g/dL (12-16); IMMATURE GRANULOCYTES 0.5 % (0-5); LYMPHOCYTES 13.5 % (15-50); MCH 30.1 pg (26.0-34.0); MCHC 33.2 g/dL (31.0-37.0); MCV 90.6 fL (80.0-100.0); MEAN PLATELET VOLUME 10.4 fL (7.4-10.4); NEUTROPHILS 79.3 % (40-80); PLATELET COUNT 133 10x3/uL (130-400); RBC 3.95 10x6/uL (4.00-5.40)
[2018-08-18 06:27] LABS: ALBUMIN 2.2 g/dL (3.4-5.0); ALKALINE PHOSPHATASE 71 U/L (46-116); ALT (SGPT) 54 U/L (10-68); BILIRUBIN - TOTAL 0.47 mg/dL (0.2-1.3); CALC OSMOLALITY 285 mosm/kg (275-300); CALCIUM 7.7 mg/dL (8.5-10.1); CARBON DIOXIDE 26.6 mmol/L (21.0-32.0); CHLORIDE - SERUM 106 mmol/L (98-107); CREATININE - SERUM 0.6 mg/dL (0.6-1.3); GLUCOSE 149 mg/dL (74-106); MAGNESIUM - SERUM 1.8 mg/dL (1.8-2.4); POTASSIUM - SERUM 3.7 mmol/L (3.5-5.1); SODIUM 140 mmol/L (136-145); UREA NITROGEN 25 mg/dL (7-18); eGFR NON AFRICAN AMERICAN > 90 mL/min (90-120)
[2018-08-18 06:49] LABS: WBC 10.3 10x3/uL (4.8-10.8)
[2018-08-18 09:29] VITALS: BP 155/68
--- NOTE | 2018-08-18 10:22 | NUR ---
PT ALERT X 4. BREATH SOUNDS CLEAR BILAT, 3.5L O2 PER NC. TELEMETRY IN PLACE. IV TO RIGHT FOREARM, PATENT, DRESSING CDI. ABDOMEN DISTENDED AND FIRM, TENDER TO ALL QUADS. PT REPORTING PAIN OF 8/10, WILL MONITOR. FAMILY AT BEDSIDE. BED LOW, CALL LIGHT IN REACH. NO OTHER NEEDS AT THIS TIME.
[2018-08-18 13:50] VITALS: BP 168/80
[2018-08-18 17:52] VITALS: BP 155/65
--- NOTE | 2018-08-18 20:00 | NUR ---
ASSISTED PT BACK TO BED FROM TOILET. GAIT UNSTEADY. PT BREATHING FAST. PT HAD LARGE SOFT STOOL. BROUGHT IN BEDSIDE COMMODE FOR FUTURE TRIPS. COMPLETE ASSESSMENT PER FLOW-SHEET. WILL CONTINUE TO MONITOR.
[2018-08-18 20:17] VITALS: BP 142/68
[2018-08-19 01:42] VITALS: BP 136/76
[2018-08-19 04:00] VITALS: BP 149/67
[2018-08-19 06:47] LABS: BASOPHILS 0.3 % (0-2); EOSINOPHILS 0.2 % (0-7); HEMATOCRIT 36.7 % (36.0-48.0); HEMOGLOBIN 12.3 g/dL (12-16); IMMATURE GRANULOCYTES 0.8 % (0-5); INR 1.38 (0.85-1.17); LYMPHOCYTES 15.4 % (15-50); MCHC 33.5 g/dL (31.0-37.0); MCV 89.5 fL (80.0-100.0); MEAN PLATELET VOLUME 9.3 fL (7.4-10.4); MONOCYTES 5.9 % (2-11); NEUTROPHILS 77.4 % (40-80); PROTIME 16.4 SECONDS (11.6-15.0); RDW 14.4 % (11.5-14.5); WBC 11.9 10x3/uL (4.8-10.8)
[2018-08-19 06:49] LABS: PLATELET COUNT 163 10x3/uL (130-400)
[2018-08-19 07:06] LABS: ALKALINE PHOSPHATASE 63 U/L (46-116); ALT (SGPT) 46 U/L (10-68); AMYLASE - SERUM 26 U/L (25-115); BILIRUBIN - TOTAL 0.44 mg/dL (0.2-1.3); CALC OSMOLALITY 291 mosm/kg (275-300); CALCIUM 7.7 mg/dL (8.5-10.1); CARBON DIOXIDE 25.8 mmol/L (21.0-32.0); CHLORIDE - SERUM 106 mmol/L (98-107); CREATININE - SERUM 0.6 mg/dL (0.6-1.3); GLUCOSE 195 mg/dL (74-106); LIPASE 86 U/L (73-393); POTASSIUM - SERUM 3.8 mmol/L (3.5-5.1); PROTEIN - SERUM 5.7 g/dL (6.4-8.2); SODIUM 142 mmol/L (136-145); UREA NITROGEN 24 mg/dL (7-18); VANCOMYCIN - RANDOM 4.3 ug/mL (10.0-20.0); eGFR NON AFRICAN AMERICAN > 90 mL/min (90-120)
[2018-08-19 09:17] VITALS: BP 185/83
--- NOTE | 2018-08-19 10:59 | NUR ---
PT ALERT X 4. BREATH SOUNDS CLEAR BILAT, 3.5L O2 PER NC. TELEMETRY IN PLACE. IV TO LEFT HAND, PATENT, DRESSING CDI. ABDOMEN DISTENDED AND FIRM, NOT TENDER YESTERDAY. PT HAS HAD 3 BM'S IN LAST 24 HOURS. PT REPORTING PAIN OF 5/10, MEDICATED PER ORDERS, WILL MONITOR. FAMILY AT BEDSIDE. BED LOW, CALL LIGHT IN REACH. NO OTHER NEEDS AT THIS TIME.
[2018-08-19 13:07] VITALS: BP 167/78
[2018-08-19 17:00] VITALS: BP 161/78
[2018-08-19 20:00] VITALS: BP 133/61
--- NOTE | 2018-08-19 20:44 | NUR ---
PT ALERT & ORIENTED. C/O ABDOMINAL PAIN 08/15. GAVE MORPHINE 2 MG IV PUSH. COMPLETE ASSESSMENT PER FLOW-SHEET. PT DYSPNEIC ON EXERTION. NO OTHER NEEDS. WILL REASSESS AND CONTINUE TO MONITOR.
[2018-08-20] VITALS: BP 138/63
[2018-08-20 04:31] LABS: BASOPHILS 0.1 % (0-2); EOSINOPHILS 1.9 % (0-7); HEMATOCRIT 35.2 % (36.0-48.0); IMMATURE GRANULOCYTES 1.1 % (0-5); LYMPHOCYTES 12.2 % (15-50); MCH 30.8 pg (26.0-34.0); MCHC 34.1 g/dL (31.0-37.0); MCV 90.3 fL (80.0-100.0); MEAN PLATELET VOLUME 9.8 fL (7.4-10.4); MONOCYTES 4.8 % (2-11); NEUTROPHILS 79.9 % (40-80); PLATELET COUNT 142 10x3/uL (130-400); RDW 14.4 % (11.5-14.5)
[2018-08-20 04:33] LABS: WBC 15.1 10x3/uL (4.8-10.8)
[2018-08-20 04:39] LABS: INR 1.32 (0.85-1.17); PROTIME 15.8 SECONDS (11.6-15.0)
[2018-08-20 04:49] LABS: ALBUMIN 1.9 g/dL (3.4-5.0); ALKALINE PHOSPHATASE 67 U/L (46-116); ALT (SGPT) 35 U/L (10-68); BILIRUBIN - TOTAL 0.41 mg/dL (0.2-1.3); CALC OSMOLALITY 284 mosm/kg (275-300); CALCIUM 7.3 mg/dL (8.5-10.1); CARBON DIOXIDE 26.8 mmol/L (21.0-32.0); CHLORIDE - SERUM 107 mmol/L (98-107); CREATININE - SERUM 0.7 mg/dL (0.6-1.3); GLUCOSE 148 mg/dL (74-106); POTASSIUM - SERUM 3.8 mmol/L (3.5-5.1); PROTEIN - SERUM 5.4 g/dL (6.4-8.2); SODIUM 140 mmol/L (136-145); UREA NITROGEN 20 mg/dL (7-18); VANCOMYCIN - TROUGH 10.5 ug/mL (10.0-20.0); eGFR NON AFRICAN AMERICAN 85 mL/min (90-120)
--- NOTE | 2018-08-20 09:00 | NUR ---
ASSESSMENT PER FLOW SHEET. PT IS WITHOUT DISTRESS.CALL LIGHT IN REACH. ISOLATION MAINTAINED.
[2018-08-20 09:46] VITALS: BP 145/65
[2018-08-20 14:23] VITALS: BP 145/70
[2018-08-20 17:12] VITALS: BP 137/73
--- NOTE | 2018-08-20 18:38 | CN ---
PATIENT NAME:SIMON CLARKE MEDICAL RECORD: [id number] : 33 LOCATION:D.MS Jay2224 ADMIT DATE: 08/13/18 ACCOUNT: [id number] CONSULTING PHYSICIAN: SCOTTY TALLEY MD REFERRING PHYSICIAN: JANET BONILLA MD DATE OF CONSULTATION: 08/15/2018 CARDIOLOGY CONSULTATION DIAGNOSES: 1. Preop eval, possible cholecystectomy. 2. Coronary artery disease. 3. Hypertension. 4. Hyperlipidemia. 5. Sick sinus syndrome. 6. Status post pacemaker. 7. Previous PTCA and stent. HISTORY OF PRESENT ILLNESS: Mrs. Clarke is known to us with past history of cardiac stents in 2011 with no recurrent anginal symptomatology, status post pacemaker with no significant dysrhythmia. Pacemaker function has been normal. She has a history of hypertension, well controlled on amlodipine and losartan; and hyperlipidemia, well controlled on simvastatin. She presents with GI symptomatology. No cardiac symptomatology. Possibly in need of operative repair. PHYSICAL EXAMINATION: GENERAL APPEARANCE: Well-nourished, well-developed, appears stated age. Level of distress, comfortable. PSYCHIATRIC: Mental status, alert, normal affect. Orientation, oriented to time, place and person. EYES: Lids and conjunctiva, noninjected. No discharge, no pallor. ENT: Lips, teeth, gums, normal dentition. Oropharynx, no cyanosis, no pallor. NECK: Carotid arteries, bilateral normal upstroke, no bruits, no thrills. JUGULAR VEINS: No jugular venous pressure or distention. CERVICAL LYMPH NODES: Nontender, nonenlarged. THYROID: Not enlarged. Nontender. No nodules. LUNGS: Respiratory effort, unlabored. CHEST: Normal curvature. No thoracic deformity. No chest wall tenderness. Percussion, resonant. Auscultation, clear. No wheezes, no rales, no rhonchi. CARDIOVASCULAR: Precordial exam, nondisplaced. No heaves or pericardial thrills. Rate and rhythm, regular. Heart sounds, normal S1, normal S2. No S3, no gallop, no rub. Systolic murmur, not heard. Diastolic murmur, not heard. EXTREMITIES: No cyanosis, no edema. Peripheral pulses, full and equal in all extremities, except as noted. No bruits appreciated. ABDOMEN: Soft, nondistended. Normal aorta. No bruit. Nontender. No masses. Liver, nontender, no hepatomegaly. Spleen, nontender, no splenomegaly. MUSCULOSKELETAL: No joint tenderness. No joint swelling. No erythema. NEUROLOGICAL: Normal gait, normal strength, normal tone. SKIN: Warm and dry. OVERALL IMPRESSION: Stable cardiac and low risk from cardiac standpoint with general anesthesia and general surgery. No other cardiac workup or treatment necessary prior to the surgery. CONSULT REPORT [id number] SIMON CLARKE TRANSINT:[id number] Voice Confirmation ID: [id number] DOCUMENT ID: [id number] SCOTTY TALLEY MD at 1838 CC: [id number] DICTATION DATE: 08/15/18 170 PIPELINE INSPECTOR: 08/15/18 1901 ADM IN [facility] [address] [place] [address]
[2018-08-20 22:03] VITALS: BP 151/74
--- NOTE | 2018-08-21 00:30 | NUR ---
PT RESTING IN BED. ALERT AND ORIENTED. NO SIGNS OF DISTRESS. BREATHING EVEN AND UNLABORED. IV SITE LT HAND DRESSING CLEAN DRY AND INTACT. NO SIGNS OF INFECTION. 2LO2 NASAL CANNULA. ABD DRESSINGS CLEAN DRY AND INTACT. ABD DISTENDED. WILL CONTINUE PLAN OF CARE. CALL LIGHT IN REACH. BED LOWERED AND LOCKED.
[2018-08-21 01:49] VITALS: BP 148/64
--- NOTE | 2018-08-21 02:15 | NUR ---
RESITE IV. ATTEMPTS X2. PT TOLERATED WELL. NEW IV SITE RT FA. WILL CONTINUE FLUIDS.
--- NOTE | 2018-08-21 04:01 | NUR ---
I have reviewed this patient and I concur with the Shift Assessment completed by the Licensed Practical Nurse today this shift.
[2018-08-21 04:25] LABS: BASOPHILS 0.2 % (0-2); EOSINOPHILS 2.3 % (0-7); HEMATOCRIT 34.8 % (36.0-48.0); HEMOGLOBIN 11.3 g/dL (12-16); IMMATURE GRANULOCYTES 0.9 % (0-5); LYMPHOCYTES 14.6 % (15-50); MCH 29.4 pg (26.0-34.0); MCHC 32.5 g/dL (31.0-37.0); MCV 90.6 fL (80.0-100.0); MEAN PLATELET VOLUME 9.6 fL (7.4-10.4); MONOCYTES 5.2 % (2-11); NEUTROPHILS 76.8 % (40-80); PLATELET COUNT 145 10x3/uL (130-400); RBC 3.84 10x6/uL (4.00-5.40); RDW 14.6 % (11.5-14.5); WBC 12.8 10x3/uL (4.8-10.8)
[2018-08-21 04:33] LABS: INR 1.32 (0.85-1.17); PROTIME 15.8 SECONDS (11.6-15.0)
[2018-08-21 04:56] LABS: ALBUMIN 1.8 g/dL (3.4-5.0); ALKALINE PHOSPHATASE 68 U/L (46-116); ALT (SGPT) 31 U/L (10-68); BILIRUBIN - TOTAL 0.32 mg/dL (0.2-1.3); CALC OSMOLALITY 282 mosm/kg (275-300); CALCIUM 7.4 mg/dL (8.5-10.1); CARBON DIOXIDE 27.7 mmol/L (21.0-32.0); CHLORIDE - SERUM 106 mmol/L (98-107); CREATININE - SERUM 0.6 mg/dL (0.6-1.3); GLUCOSE 162 mg/dL (74-106); POTASSIUM - SERUM 3.9 mmol/L (3.5-5.1); PROTEIN - SERUM 5.2 g/dL (6.4-8.2); SODIUM 139 mmol/L (136-145); eGFR NON AFRICAN AMERICAN > 90 mL/min (90-120)
[2018-08-21 05:02] LABS: UREA NITROGEN 14 mg/dL (7-18)
[2018-08-21 06:31] VITALS: BP 165/78
[2018-08-21 09:32] VITALS: BP 151/63
--- NOTE | 2018-08-21 11:41 | NUR ---
REPORT CALLED TO [facility],SPOKE WITH GUNNAR FRANKEL RN
[2018-08-21 13:01] VITALS: BP 157/69
[2018-08-21 18:45] VITALS: BP 162/70
--- NOTE | 2018-08-21 19:00 | NUR ---
REMAINS WITHOUT NEEDS,WITHOUT CHANGE.CONT PLAN OF CARE
--- NOTE | 2018-08-21 23:22 | NUR ---
I have reviewed this patient and I concur with the Shift Assessment completed by the Licensed Practical Nurse today this shift.
[2018-08-22] VITALS (12 sets, daily range): BP systolic 132–180; BP diastolic 37–76
--- NOTE | 2018-08-22 03:21 | NUR ---
PT RESTING IN BED. EYES CLOSED. NO SIGNS OF DISTRESS. BREATHING EVEN AND UNLABORED. IV SITE RT FA DRESSING CLEAN DRY AND INTACT. NO SIGNS OF INFECTION. 2LO2 NASAL CANNULA. ABD INCISIONS CLEAN DRY AND INTACT. ABD DISTENDED. SOME LOWER LEG SWELLING PRESENT. WILL CONTINUE PLAN OF CARE. CALL LIGHT IN REACH. BED LOWERED AND LOCKED.
[2018-08-22 07:05] LABS: INR 1.28 (0.85-1.17); PROTIME 15.4 SECONDS (11.6-15.0)
[2018-08-22 07:15] LABS: ALBUMIN 1.8 g/dL (3.4-5.0); ALKALINE PHOSPHATASE 70 U/L (46-116); BILIRUBIN - TOTAL 0.43 mg/dL (0.2-1.3); CALC OSMOLALITY 280 mosm/kg (275-300); CALCIUM 7.6 mg/dL (8.5-10.1); CARBON DIOXIDE 29.8 mmol/L (21.0-32.0); CHLORIDE - SERUM 105 mmol/L (98-107); CREATININE - SERUM 0.5 mg/dL (0.6-1.3); GLUCOSE 144 mg/dL (74-106); POTASSIUM - SERUM 3.8 mmol/L (3.5-5.1); PROTEIN - SERUM 5.3 g/dL (6.4-8.2); SODIUM 140 mmol/L (136-145); UREA NITROGEN 11 mg/dL (7-18); eGFR NON AFRICAN AMERICAN > 90 mL/min (90-120)
--- NOTE | 2018-08-22 07:15 | NUR ---
PT IS RESTING IN BED WITH EYES CLOSED. RESPIRATIONS ARE EVEN AND UNLABORED. PT IS EASILY AROUSED WITH VERBAL STIMULATION. PT DENIES PRESENCE OF N/V AT THIS TIME. PT REPORTS SPASM LIKE ABDOMINAL THAT IS INTERMITTENT. PT DENIES NEEDS FOR PAIN MANAGEMENT AT THIS TIME. LAP SITES X 6 NOTED TO ABDOMEN. ABDOMEN IS DISTENDED. BS ARE HYPOACTIVE X 4 QUADRANTS. BED IS IN THE LOWEST POSITION. CALL LIGHT AND BEDSIDE TABLE ARE WITHIN REACH. SIDE RAILS X 2. KURT ALARM IS ON AND WORKING. PT DENIES FURTHER NEEDS. WILL CONT TO MONITOR.
[2018-08-22 07:18] LABS: ALT (SGPT) 22 U/L (10-68)
--- NOTE | 2018-08-22 11:50 | NUR ---
Rehab Prescreening Consult recieved and the chart has been reviewed. She is scheduled for a Diagnostic Laparotomy today and will need a PT re-eval post op when appropriate. She is a good rehab candidate when medically stable. Rehab will continue to follow. Leti Flores RN Clinical Liaison, Rehab
--- NOTE | 2018-08-22 12:16 | NUR ---
PRE OP MEDICATIONS NOT ORDERED ON EMAR AT THIS TIME. SURGERY NOTIFIED.
--- NOTE | 2018-08-22 12:38 | NUR ---
PT TRANSPORTED OFF FLOOR FOR PROCEDURE VIA BED.
--- NOTE | 2018-08-22 13:59 | NUR ---
NUTRITION F/U PT NPO AND OUT OF ROOM TO SURGERY. RECEIVED VERBAL CONSULT TO START TPN. ORDERED LABS. WILL REVIEW LABS AND WRITE ORDER. YAIR FOLLOWING
--- NOTE | 2018-08-22 15:16 | NUR ---
PT RETURNS TO ROOM POST POCEDURE AAO X 4. FAMILY IS AT BEDSIDE. PT TRANSPORTED VIA BED. ZANE DRAINS X 2 TO RIGHT/LEFT ABDOMEN. 10ML EMPTIED SANGUINOUS FLUID FROM LEFT SIDE, 50ML SANGUINOUS FLUID EMPTIED FROM RIGHT SIDE. O2 VIA NC @ 5L. SEE VITALS FLOWSHEET FOR VITALS. PT REPORTS PAIN 11/15. WILL ADDRESS. SEE EMAR. FREQUENT VITALS INITIATED. BED IS IN THE LOWEST POSITION. CALL LIGHT AND BEDSIDE TABLE ARE WITHIN REACH. SIDE RAILS X 2. BED ALARM IS ON AND WORKING. PT/PT FAMILY DENY FURTHER NEEDS AT THIS TIME. WILL CONT TO MONITOR.
[2018-08-22 16:22] LABS: BASOPHILS 0.1 % (0-2); EOSINOPHILS 0.4 % (0-7); HEMATOCRIT 35.2 % (36.0-48.0); HEMOGLOBIN 11.5 g/dL (12-16); LYMPHOCYTES 5.6 % (15-50); MCH 29.6 pg (26.0-34.0); MCHC 32.7 g/dL (31.0-37.0); MCV 90.5 fL (80.0-100.0); MEAN PLATELET VOLUME 9.3 fL (7.4-10.4); MONOCYTES 3.1 % (2-11); NEUTROPHILS 89.8 % (40-80); PLATELET COUNT 137 10x3/uL (130-400); RBC 3.89 10x6/uL (4.00-5.40); RDW 14.6 % (11.5-14.5); WBC 13.8 10x3/uL (4.8-10.8)
[2018-08-22 16:48] LABS: MAGNESIUM - SERUM 1.7 mg/dL (1.8-2.4); PHOSPHOROUS 2.8 mg/dL (2.5-4.9)
--- NOTE | 2018-08-22 19:30 | NUR ---
PT ALERT AND ORIENTED WHEN ENTERING THE ROOM. DAUGHTER AT BEDSIDE. ASSISTED PATIENT TO BEDSIDE COMMODE. HAS LEFT WRIST IV THAT IS AT A KVO RATE WITH PROCAL INFUSING AT 50. PATIENT HAS SHALLOW BREATHS NOTED AND IS DYSPNIC UPON EXERTION. WEARING 5L NC. PACEMAKER NOTED. SR ON MONITOR.
[2018-08-23] VITALS: BP 134/65
[2018-08-23 04:00] VITALS: BP 141/60
[2018-08-23 05:20] LABS: ALBUMIN 1.9 g/dL (3.4-5.0); ALKALINE PHOSPHATASE 80 U/L (46-116); ALT (SGPT) 22 U/L (10-68); BILIRUBIN - TOTAL 0.35 mg/dL (0.2-1.3); CALC OSMOLALITY 280 mosm/kg (275-300); CALCIUM 7.4 mg/dL (8.5-10.1); CARBON DIOXIDE 28.3 mmol/L (21.0-32.0); CHLORIDE - SERUM 106 mmol/L (98-107); CREATININE - SERUM 0.5 mg/dL (0.6-1.3); GLUCOSE 153 mg/dL (74-106); MAGNESIUM - SERUM 1.8 mg/dL (1.8-2.4); PHOSPHOROUS 2.9 mg/dL (2.5-4.9); PROTEIN - SERUM 5.6 g/dL (6.4-8.2); SODIUM 140 mmol/L (136-145); UREA NITROGEN 10 mg/dL (7-18); eGFR NON AFRICAN AMERICAN > 90 mL/min (90-120)
[2018-08-23 05:24] LABS: BASOPHILS 0.1 % (0-2); EOSINOPHILS 0.1 % (0-7); HEMATOCRIT 35.1 % (36.0-48.0); HEMOGLOBIN 11.5 g/dL (12-16); LYMPHOCYTES 8.1 % (15-50); MCH 29.9 pg (26.0-34.0); MCHC 32.8 g/dL (31.0-37.0); MCV 91.2 fL (80.0-100.0); MEAN PLATELET VOLUME 10.1 fL (7.4-10.4); MONOCYTES 6.8 % (2-11); NEUTROPHILS 83.9 % (40-80); RBC 3.85 10x6/uL (4.00-5.40); RDW 14.8 % (11.5-14.5); WBC 15.7 10x3/uL (4.8-10.8)
[2018-08-23 05:26] LABS: PLATELET COUNT 228 10x3/uL (130-400)
[2018-08-23 05:49] LABS: INR 1.27 (0.85-1.17); PROTIME 15.3 SECONDS (11.6-15.0)
--- NOTE | 2018-08-23 06:35 | NUR ---
I have reviewed this patient and I concur with the Shift Assessment completed by the Licensed Practical Nurse today this shift.
--- NOTE | 2018-08-23 07:21 | NUR ---
PT IS RESTING IN BED WITH EYES OPEN. RESPIRATIONS ARE EVEN AND UNLABORED. ZANE DRAINS TO BILATERAL ABDOMEN NOTED WITH SANGUINOUS FLUID NOTED TO EACH DRAIN. PT REPORTS DISCOMFORT TO RIGHT SIDE AT ZANE DRAIN INSERTION SITE. WILL ADDRESS. SEE EMAR. PT EDUCATED ON SPLINTING AND TAKING DEEP BREATHS AND COUGHING. PT VERABLIZES UNDERSTANDING. PT DENIES PRESENCE OF N/V AT THIS TIME. BED IS IN THE LOWEST POSITION. CALL LIGHT AND BEDSIDE TABLE ARE WITHIN REACH. SIDE RAILS X 2. WILL CONT TO MONITOR.
[2018-08-23 08:59] VITALS: BP 131/54
[2018-08-23 13:43] VITALS: BP 143/65
[2018-08-23 17:24] VITALS: BP 132/52
--- NOTE | 2018-08-23 18:33 | NUR ---
PT REPORTS IRRITATION TO PIV LEFT WRIST SITE. REDNESS NOTED. PIV REMOVED WITH CATHETER TIP INTACT. DRESSING APPLIED. PIV RESITED TO RIGHT AC X1 ATTEMPT. PT TOLERATED WELL.
--- NOTE | 2018-08-23 19:30 | NUR ---
PT ON BEDSIDE COMMODE WHEN ENTERING THE ROOM. DAUGHTER AT BEDSIDE AND STATES THAT "WE HAVE BEEN DOING THIS FOR 45 MINUTES". PT STATES SHE HAS NEVER TAKEN LASIX BEFORE BUT SHE IS HAVING TO URINATE CONSTANTLY. PATIENT IS UPSET. REINFORCED THE PROS OF LASIX AND HELPED PATIENT BACK TO BED. PT STRUGGLES WITH MOBILITY AND BREATHING WHEN TRYING TO GET BACK AND BED. SOON PATIENT WAS BACK IN BED, SHE STATED SHE MUST URINATE AGAIN. ATTEMPTED TO GET UP TO BED SIDE COMMODE AGAIN BUT PATIENT OUT OF BREATH AND DISTRESSED. HELPED PATIENT RELAX AND USED BED AMAYA.
[2018-08-23 20:00] VITALS: BP 147/51
--- NOTE | 2018-08-23 20:00 | NUR ---
PATIENT UPSET STATING SHE HAS TO URINATE AGAIN AND REPEATEDLY APOLOGIZES. ASSISTED PATIENT WITH BED AMAYA. PATIENT URINATED BUT ASKED THIS NURSE TO PLEASE LEAVE HER ON IT AND ATTEMPTED TO REFUSE TO GET OFF OF BED AMAYA OUT OF FEAR SHE WOULD WET THE BED. EDUCATED PATIENT ON SAFETY AND PROTOCAL AND PATIENT AGREED TO LET THIS NURSE REMOVE BED AMAYA.
--- NOTE | 2018-08-23 21:00 | NUR ---
SEVERAL TRIPS TO BATHROOM. PATIENT GROWING DISTRESSED WITH EACH TURN AND ATTEMPT TO GET UP. CALL TO GEOVANNI CONNER AND RECEIVED ORDERS FOR BANKS. INSERTED PER PROTOCAL USING STERILE TECHNIQUE. PT TOLERATED WELL. IMMEDIATELY RECEIVED 600 ML INTO BANKS BAG. PT STATES SHE IS RELIEVED. HAS CALL LIGHT IN HAND. CPOC
[2018-08-24] VITALS: BP 148/69
--- NOTE | 2018-08-24 03:29 | NUR ---
I have reviewed this patient and I concur with the Shift Assessment completed by the Licensed Practical Nurse today this shift.
[2018-08-24 04:00] VITALS: BP 154/66
[2018-08-24 04:24] LABS: BASOPHILS 0.1 % (0-2); EOSINOPHILS 1.3 % (0-7); HEMATOCRIT 33.3 % (36.0-48.0); HEMOGLOBIN 10.8 g/dL (12-16); IMMATURE GRANULOCYTES 0.5 % (0-5); LYMPHOCYTES 10.6 % (15-50); MCH 29.8 pg (26.0-34.0); MCHC 32.4 g/dL (31.0-37.0); MEAN PLATELET VOLUME 9.9 fL (7.4-10.4); NEUTROPHILS 78.5 % (40-80); RBC 3.62 10x6/uL (4.00-5.40); RDW 14.8 % (11.5-14.5)
[2018-08-24 04:30] LABS: PLATELET COUNT 161 10x3/uL (130-400)
[2018-08-24 04:42] LABS: CALC OSMOLALITY 281 mosm/kg (275-300); CALCIUM 7.3 mg/dL (8.5-10.1); CARBON DIOXIDE 29.2 mmol/L (21.0-32.0); CHLORIDE - SERUM 105 mmol/L (98-107); CREATININE - SERUM 0.5 mg/dL (0.6-1.3); GLUCOSE 170 mg/dL (74-106); MAGNESIUM - SERUM 1.8 mg/dL (1.8-2.4); POTASSIUM - SERUM 3.5 mmol/L (3.5-5.1); SODIUM 140 mmol/L (136-145); UREA NITROGEN 10 mg/dL (7-18); eGFR NON AFRICAN AMERICAN > 90 mL/min (90-120)
--- NOTE | 2018-08-24 07:42 | NUR ---
REPORT RECIEVED. WILL CONTINUE WITH POC. PT CURRENTLY LYING SEMI FOWLERS. CALL LIGHT W/I REACH. ENTERIC PRECAUTIONS IN PLACE. RR EVEN AND UNLABORED ON 5L 02. PROCAL INFUSING @50ML/HR AND NS INFUSING @KVO VIA R.AC PIV. ZANE DRAINS IN PLACE AND SET TO SUCTION. BANKS IN PLACE AND DRAINING URINE. PT IS AAO AND DENIES ANY NEEDS. NO S/S OF DISTRESS NOTED. WILL CTM.
[2018-08-24 08:20] VITALS: BP 164/74
--- NOTE | 2018-08-24 10:04 | NUR ---
AM MEDICATIONS ADMINISTERED. ABX CURRENTLY INFUSING. PT DENIES ANY NEEDS. WILL CTM.
[2018-08-24 12:25] VITALS: BP 142/61
--- NOTE | 2018-08-24 13:11 | NUR ---
I have reviewed this patient and I concur with the Shift Assessment completed by the Licensed Practical Nurse today this shift.
--- NOTE | 2018-08-24 13:26 | NUR ---
Nutrition Follow Up: Chart reviewed. Pt is on Procalamine @ 50 ml/hr providing 294 kcal, 35 g protein. Diet: Clear Liquid BM: 08/19/18 - no BM x 5 days Labs reviewed Meds noted including Flagyl Rec continue advancing DANIEL as medically feasible. Rec continue Procalamine for now. RD following.
--- NOTE | 2018-08-24 16:01 | NUR ---
PT LYING SEMI FOWLERS. CALL LIGHT W/I REACH. PT DENIES ANY NEEDS. NO S/S OF DISTRESS NOTED. WILL CTM.
[2018-08-24 17:44] VITALS: BP 148/70
--- NOTE | 2018-08-24 19:15 | NUR ---
RECEIVED CARE FROM DAY NURSE. LYING IN BED ON BACK. EYES CLOSED, RESP EVEN AND UNLABORED. CALL LIGHT AT SIDE. IV INFUSING PER ORDER TO PATENT RIGHT HAND. BANKS TO GRAVITY.
[2018-08-24 20:00] VITALS: BP 141/62
[2018-08-25] VITALS: BP 126/71
[2018-08-25 04:00] VITALS: BP 157/68
--- NOTE | 2018-08-25 04:28 | NUR ---
I have reviewed this patient and I concur with the Shift Assessment completed by the Licensed Practical Nurse today this shift.
[2018-08-25 05:26] LABS: BASOPHILS 0.2 % (0-2); EOSINOPHILS 0.3 % (0-7); HEMATOCRIT 35.7 % (36.0-48.0); HEMOGLOBIN 11.5 g/dL (12-16); IMMATURE GRANULOCYTES 0.5 % (0-5); LYMPHOCYTES 11.6 % (15-50); MCH 29.5 pg (26.0-34.0); MCHC 32.2 g/dL (31.0-37.0); MCV 91.5 fL (80.0-100.0); MEAN PLATELET VOLUME 9.5 fL (7.4-10.4); MONOCYTES 9.6 % (2-11); NEUTROPHILS 77.8 % (40-80); PLATELET COUNT 182 10x3/uL (130-400); RDW 14.5 % (11.5-14.5); WBC 10.7 10x3/uL (4.8-10.8)
[2018-08-25 05:45] LABS: CALC OSMOLALITY 283 mosm/kg (275-300); CALCIUM 7.7 mg/dL (8.5-10.1); CARBON DIOXIDE 30.7 mmol/L (21.0-32.0); CHLORIDE - SERUM 102 mmol/L (98-107); CREATININE - SERUM 0.4 mg/dL (0.6-1.3); GLUCOSE 182 mg/dL (74-106); POTASSIUM - SERUM 3.1 mmol/L (3.5-5.1); SODIUM 141 mmol/L (136-145); UREA NITROGEN 8 mg/dL (7-18); eGFR NON AFRICAN AMERICAN > 90 mL/min (90-120)
[2018-08-25 08:07] LABS: MAGNESIUM - SERUM 1.8 mg/dL (1.8-2.4); PHOSPHOROUS 1.9 mg/dL (2.5-4.9)
[2018-08-25 09:16] VITALS: BP 165/74
[2018-08-25 12:54] VITALS: BP 153/71
[2018-08-25 18:29] VITALS: BP 137/62
--- NOTE | 2018-08-25 19:15 | NUR ---
RECEIVED CARE FROM DAY NURSE. LYING IN BED ON BACK. EYES CLOSED, RESP EVEN AND UNLABORED. CALL LIGHT AT SIDE. IV INFUSING PER ORDER TO RIGHT AC. BANKS TO GRAVITY.
[2018-08-25 20:00] VITALS: BP 108/57
[2018-08-26] VITALS (13 sets, daily range): BP systolic 82–167; BP diastolic 48–77
--- NOTE | 2018-08-26 03:49 | NUR ---
I have reviewed this patient and I concur with the Shift Assessment completed by the Licensed Practical Nurse today this shift.
--- NOTE | 2018-08-26 05:00 | NUR ---
IV TO RIGHT AC DISLOADGED. RESITED TO LEFT FA. 20 GUAGE X3 STICKS WITH GOOD BLOOD RETURN NOTED.
[2018-08-26 06:18] LABS: BASOPHILS 0.2 % (0-2); EOSINOPHILS 0.3 % (0-7); HEMATOCRIT 33.6 % (36.0-48.0); HEMOGLOBIN 10.9 g/dL (12-16); IMMATURE GRANULOCYTES 0.3 % (0-5); LYMPHOCYTES 10.9 % (15-50); MCH 29.5 pg (26.0-34.0); MCHC 32.4 g/dL (31.0-37.0); MCV 91.1 fL (80.0-100.0); MEAN PLATELET VOLUME 9.7 fL (7.4-10.4); MONOCYTES 9.4 % (2-11); NEUTROPHILS 78.9 % (40-80); PLATELET COUNT 200 10x3/uL (130-400); RBC 3.69 10x6/uL (4.00-5.40); RDW 14.5 % (11.5-14.5); WBC 10.5 10x3/uL (4.8-10.8)
[2018-08-26 06:19] LABS: CALC OSMOLALITY 276 mosm/kg (275-300); CALCIUM 7.7 mg/dL (8.5-10.1); CARBON DIOXIDE 34.8 mmol/L (21.0-32.0); CHLORIDE - SERUM 101 mmol/L (98-107); GLUCOSE 177 mg/dL (74-106); MAGNESIUM - SERUM 1.8 mg/dL (1.8-2.4); PHOSPHOROUS 1.9 mg/dL (2.5-4.9); SODIUM 137 mmol/L (136-145); UREA NITROGEN 9 mg/dL (7-18)
[2018-08-26 06:23] LABS: CREATININE - SERUM 0.6 mg/dL (0.6-1.3); POTASSIUM - SERUM 3.8 mmol/L (3.5-5.1); eGFR NON AFRICAN AMERICAN > 90 mL/min (90-120)
[2018-08-26 11:54] LABS: APTT 25.1 SECONDS (22.8-39.4); INR 1.37 (0.85-1.17); PROTIME 16.3 SECONDS (11.6-15.0)
[2018-08-26 14:25] LABS: CKMB 0.8 U/L (0.0-3.6); CREATINE KINASE 72 UL (21-215)
[2018-08-26 14:26] LABS: TROPONIN-I 0.091 ng/mL (0.000-0.060)
--- NOTE | 2018-08-26 19:15 | NUR ---
RECEIVED CARE FROM DAY NURSE. LYING IN HIGH FOWLERS POSITION. CONTINUOUS VITALS IN PLACE. RESP TACHY AND SATING 93% ON 8L VIA HIGH FLOW NC. BANKS TO GRAVITY WITH DARK URINE. IV INFUSING TO PATENT RIGHT FA. CT GUIDED DRAING TO GRAVITY. CALL LIGHT AT SIDE.
--- NOTE | 2018-08-27 03:35 | NUR ---
WITHOUT CHANGES THUS FAR. WILL CONTINUE TO MONITOR.
--- NOTE | 2018-08-27 03:38 | NUR ---
I have reviewed this patient and I concur with the Shift Assessment completed by the Licensed Practical Nurse today this shift.
[2018-08-27 04:00] VITALS: BP 91/40
[2018-08-27 04:47] LABS: BASOPHILS 0.2 % (0-2); EOSINOPHILS 0 % (0-7); IMMATURE GRANULOCYTES 0.7 % (0-5); LYMPHOCYTES 16.1 % (15-50); MCH 29.9 pg (26.0-34.0); MCHC 33.3 g/dL (31.0-37.0); MCV 89.6 fL (80.0-100.0); MEAN PLATELET VOLUME 10.4 fL (7.4-10.4); MONOCYTES 4.4 % (2-11); NEUTROPHILS 78.6 % (40-80); RDW 14.6 % (11.5-14.5)
[2018-08-27 05:09] LABS: CALCIUM 7.6 mg/dL (8.5-10.1); CHLORIDE - SERUM 98 mmol/L (98-107); CREATINE KINASE 148 UL (21-215); MAGNESIUM - SERUM 2.1 mg/dL (1.8-2.4); SODIUM 131 mmol/L (136-145)
[2018-08-27 05:34] LABS: CALC OSMOLALITY 288 mosm/kg (275-300); CARBON DIOXIDE 21.1 mmol/L (21.0-32.0); CREATININE - SERUM 1.8 mg/dL (0.6-1.3); PHOSPHOROUS 4.3 mg/dL (2.5-4.9); UREA NITROGEN 32 mg/dL (7-18); eGFR NON AFRICAN AMERICAN 28 mL/min (90-120)
[2018-08-27 05:41] LABS: TROPONIN-I 1.026 ng/mL (0.000-0.060)
[2018-08-27 05:42] LABS: GLUCOSE 438 mg/dL (74-106)
[2018-08-27 05:47] LABS: HEMATOCRIT 45.9 % (36.0-48.0); HEMOGLOBIN 15.3 g/dL (12-16); PLATELET COUNT 347 10x3/uL (130-400); RBC 5.12 10x6/uL (4.00-5.40); WBC 13.5 10x3/uL (4.8-10.8)
--- NOTE | 2018-08-27 06:00 | NUR ---
ICU NURSE TO REVIEW PT DUE TO ABNORMAL LABS COMING BACK AND NOW SPITTING UP BILE. PT HAS HAD MINIMAL URINE OUTPUT AT 75ML. BP HAVE REMAINTED STABLE BUT NOW READING 98/53.
--- NOTE | 2018-08-27 06:29 | NUR ---
SPOKE WITH PT DAUGHTER ABOUT NEW ORDER FOR PT BEING MOVED TO ICU.
[2018-08-27 07:30] VITALS: BP 113/97
--- NOTE | 2018-08-27 07:45 | NUR ---
Arrived to unit via bed. Placed on 9L of 02 via High flow nc. Connected to ICU monitors. HR 116 sinus tachycardia, bp 113/97, o2 sat 94%, temp 97.1 axillary. Had episode of vomiting when transfering to icu bed. ZANE drain x 2 RUQ and LLQ. Abcess drain noted on right hip. Nunez in place with concentrated urine noted. Pt is tachypnic. Complete assessment charted in flowsheet. Safety measures in place. Will continue to monitor and treat.
[2018-08-27 08:00] VITALS: BP 107/56
[2018-08-27 09:00] VITALS: BP 84/54
--- NOTE | 2018-08-27 09:14 | NUR ---
Nutrition follow-up: Pt now in ICU Clear liquid diet Labs: Glucose 438, lactic acid: 6.9 Last Wt: 133# ProcalAmine PPN @ 50 ml/hr s/p abscess drained 08/26 with drains placed Pt now meeting estimated energy needs at this time. Recommend starting TPN RDN following.
--- NOTE | 2018-08-27 09:30 | NUR ---
AM MEDS GIVEN. 500CC NS BOLUS INITIATED AT THIS TIME PER ORDERS. PROCALAMINE DC PER ORDERS AND BICARB DRIP INCREASED TO 150ML/HR.
[2018-08-27 10:00] VITALS: BP 99/93
--- NOTE | 2018-08-27 11:07 | NUR ---
DR. [place] and Dr. Potts AT BEDSIDE AT THIS TIME.
--- NOTE | 2018-08-27 12:50 | NUR ---
Pt not in room. Transferred to IR for IVC filter placement. Verbal consent recieved from pt. Daughter aware of procedure.
[2018-08-27 13:38] VITALS: BP 70/48
--- NOTE | 2018-08-27 14:15 | NUR ---
REC'D PT BACK FROM IR, PT THEN WENT INTO A FIB WITH RVR, DR ISI HARRIS. FAMILY AT BEDSIDE WILL CONTINUE TO OBSERVE,.
--- NOTE | 2018-08-27 15:00 | NUR ---
PT AGONAL BREATHING, DAUGHTER AT BEDSIDE, PT DNR, DR. SNOWDEN NOTIFIED
[2018-08-27 15:03] LABS: INR 1.79 (0.85-1.17); PROTIME 20.1 SECONDS (11.6-15.0)
--- NOTE | 2018-08-27 15:14 | NUR ---
DR. LEWIS AT BEDSIDE TO PRONOUNCE
[2018-08-27 15:17] LABS: CKMB 5.4 U/L (0.0-3.6)
--- NOTE | 2018-08-27 15:35 | NUR ---
[facility] NOTIFIED OF PT
[2018-08-27 15:39] LABS: CREATINE KINASE 311 UL (21-215)
[2018-08-27 15:40] LABS: TROPONIN-I 1.192 ng/mL (0.000-0.060)
--- NOTE | 2018-08-27 15:55 | NUR ---
HOME NOTIFIED OF NEED OF SERVICES
--- NOTE | 2018-08-27 16:30 | NUR ---
HOME HERE FOR PT
--- NOTE | 2018-08-27 16:59 | MORECARE ---
CASE MANAGEMENT DISCHARGE SUMMARY PATIENT: SIMON THOMPSON UNIT: [id number] ADM DATE: 08/13/18 AGE: 82 : 33 SEX: F ROOM/BED: D.2301 AUTHOR: OVIDIODOC PHYSICIAN: REFERRING PHYSICIAN: JANET BONILLA MD DATE OF SERVICE: 08/27/18 Discharge Plan Patient Name: SIMON THOMPSON Facility: [facility]:[place] : 1935 Planned Disposition: Anticipated Discharge Date: Discharge Date: 08/27/2018 Expected LOS: Initial Reviewer: [email or web address] Initial Review Date: 08/16/2018 Generated: 08/27/18 5:59 pm DCP- Discharge Planning Updated by [email or web address]: Marie Pressley on 08/17/18 2:[address] CM met with daughter to discuss discharge planning. Patient lives alone, she has 2 steps to enter into her home and no stairs inside. She is completely independent of all ADL's and AIDL's. She has no medical equipment at home. I discussed the availability of inpatient rehab, SNF, home health and DME needs. Her daughter states at this time, she is unsure of any needs. CM will continue to follow and assist with discharge planning/needs. DCP- Discharge Planning Updated by [email or web address]: Jazmín Berger on 08/17/18 10:[address] Patient Name: SIMON THOMPSON Admission Status: ER Accout number: [id number] Admission Date: 08-13-2018 : 1935 Admission Diagnosis:UNSPECIFIED ABDOMINAL PAIN Attending: JANET BONILLA Current LOS: 4 Anticipated DC Date: Planned Disposition: Primary Insurance: MEDICARE A & B Discharge Planning Comments: CM WENT TO MEET WITH PATIENT, SHE IS SLEEPING, RN SAID SHE JUST RECEIVED PAIN MEDICATION. I CALLED HER DAUGHTER CLIF HIDALGO AT [phone], NO ANSWER, LEFT [facility] [place] FOR HER TO CALL ME BACK IN ORDER TO COMPLETE ASSESMENT. CM TO FOLLOW AND ASSIST. Activities Counselor: Jazmín Berger DCPIA - Discharge Planning Initial Assessment Updated by [email or web address]: Jazmín Berger on 08/17/18 11:28 am * Is the patient Alert and Oriented? No * PCP DEVI * Preadmission Environment Home Alone * List name and contact numbers for known caregivers / representatives who currently or will assist patient after discharge: CLIF HIDALGO, DAUGHTER, * Has this patient been hospitalized within the prior 30 days at any hospital? No Last DP export: 08/17/18 2:56 p Patient Name: SIMON THOMPSON Page [id number] at 1659 All edits/amendments must be made on the electronic document DICTATION DATE: 08/27/181658 SOCIAL WELFARE RESEARCH WORKER: MONIKA 08/27/181658 RPT#: [id number] DC DATE:08/27/18 STATUS: DIS IN [facility] [address] [place] [address] END OF REPORT
== END 2018-08-27 15:14 | DRG 417 ==
LOC: D.ER 19:11 → D.M2 22:36 → OBSVTIME 22:36 → D.M2 22:36 → D.M3 08-13 18:16 → D.M2 08-13 18:16 → D.MS 08-13 18:16 → D.ICU 08-13 18:16 → D.M3 08-13 19:34 → D.MS 08-16 16:35 → D.M3 08-16 17:04 → D.ICU 08-16 17:25 → D.MS 08-17 13:16 → D.ICU 08-27 07:16
PROVIDERS: Emergency Medicine; Family Medicine; Family Medicine Adult Medicine; Internal Medicine Interventional Cardiology; Internal Medicine Pulmonary Disease; Radiology Diagnostic Radiology; Radiology Vascular & Interventional Radiology; Surgery; ADMIT Internal Medicine Nephrology; ATTEND Internal Medicine Nephrology
PROC: BF101ZZ Fluoroscopy of Bile Ducts using Low Osmolar Contrast (ICD-10-PCS; 2018-08-16)
PROC: 0FT44ZZ Resection of Gallbladder, Percutaneous Endoscopic Approach (ICD-10-PCS; principal; 2018-08-16 09:15)
PROC: 0FB04ZX Excision of Liver, Percutaneous Endoscopic Approach, Diagnostic (ICD-10-PCS; 2018-08-16 09:15)
PROC: 0WJG4ZZ Inspection of Peritoneal Cavity, Percutaneous Endoscopic Approach (ICD-10-PCS; 2018-08-22)
DX: K80.80 Other cholelithiasis without obstruction (principal); J96.01 Acute respiratory failure with hypoxia; I26.92 Saddle embolus of pulmonary artery without acute cor pulmonale; A41.9 Sepsis, unspecified organism; B17.9 Acute viral hepatitis, unspecified; A04.72 Enterocolitis due to Clostridium difficile, not specified as recurrent; J98.11 Atelectasis; E44.0 Moderate protein-calorie malnutrition; D62 Acute posthemorrhagic anemia; G72.81 Critical illness myopathy; K56.7 Ileus, unspecified; K57.20 Diverticulitis of large intestine with perforation and abscess without bleeding; I10 Essential (primary) hypertension; I25.10 Atherosclerotic heart disease of native coronary artery without angina pectoris; E86.0 Dehydration; K74.60 Unspecified cirrhosis of liver; E78.5 Hyperlipidemia, unspecified; Z68.23 Body mass index [BMI] 23.0-23.9, adult; F41.9 Anxiety disorder, unspecified; Z95.0 Presence of cardiac pacemaker